=== PATIENT | female | born 1965 | race Caucasian/White ===

== ENCOUNTER → 2016-11-07 | Outpatient (CLI) | payer OTHER ==
[2016-11-07 08:00] LABS: FREE T4 1.09 ng/dL (0.76-1.46)
== END | disposition home or self-care (01) ==
LOC: LAB 04:38
PROVIDERS: ATTEND Family Medicine
DX: E03.8 Other specified hypothyroidism (principal)
CPT/HCPCS: 36415; 84439; 84443; 84479

== ENCOUNTER 2016-12-29 17:09 | Emergency (ER) | payer OTHER ==
[~2016-12-29] VITALS: Ht 172.7 cm; Wt 82.6 kg
[2016-12-29 17:15] VITALS: BP 126/81
[2016-12-29] MEDS ORDERED: PROAIR HFA8.5 GM INH (18:17)
[2016-12-29] MEDS ORDERED: PRED20TA PO (18:17)
[2016-12-29] MEDS ORDERED: AZIT250T PO (18:17)
--- NOTE | 2016-12-29 18:17 | PHYS DOC ---
Past Medical History Past Medical History: Hypothyroid Past Surgical History: Appendectomy, Hysterectomy, Tonsillectomy Additional Past Surgical Histo: THYROIDECTOMY Smoking: Less than 1pk/day Alcohol Use: None Drug Use: None Adult General Chief Complaint Chief Complaint: OTHER COMPLAINTS [facility] HPI Patient is a 51 year old female who presents with productive cough for 5 days. She states that her left lung feels "congested." She has a burning sensation in the left lung when she coughs. She also has nasal congestion and right ear pain. She denies fever, shortness breath, or sore throat. She's been taking DayQuil and NyQuil for her symptoms without relief. She is a smoker. Her PCP is Dr. Calvin. Review of Systems Review of Systems Constitutional: Denies fever or chills. [] Eyes: Denies change in visual acuity, redness, or eye pain. [] HENT: Denies sore throat. Reports nasal congestion and right ear pain. Respiratory: Denies shortness of breath. Reports productive cough. Cardiovascular: Denies palpitations or edema. [] GI: Denies abdominal pain, nausea, vomiting, bloody stools or diarrhea. [] : Denies dysuria, hematuria or urinary frequency. [] Musculoskeletal: Denies back pain or joint pain. [] Integument: Denies rash or skin lesions. [] Neurologic: Denies headache, focal weakness or sensory changes. [] Endocrine: Denies polyuria or polydipsia. [] Psych: Denies anxiety or depression. [] All systems reviewed and negative unless otherwise stated in the HPI. Allergies Allergies Allergies Coded Allergies Type Severity Reaction Last Updated Verified Sulfa (Sulfonamide Antibiotics) Allergy Unknown 12/29/16 No Physical Exam Physical Exam Constitutional: Well developed, well nourished, no acute distress, non-toxic appearance. [] HENT: Normocephalic, atraumatic, bilateral external ears normal, oropharynx moist, no oral exudates, nose normal. Bilateral TMs without erythema or bulging. There is no posterior pharyngeal erythema or tonsillar edema. Bilateral nasal turbinates are swollen and erythematous. Eyes: PERRLA, EOMI, conjunctiva normal, no discharge. [] Neck: Normal range of motion, no tenderness, supple, no stridor. [] Cardiovascular: Heart rate regular rhythm, no murmur [] Lungs & Thorax: Bilateral breath sounds clear to auscultation without wheezes, rales, or rhonchi. Skin: Warm, dry, no erythema, no rash. [] Neurologic: Alert and oriented X 3, normal motor function, normal sensory function, no focal deficits noted. [] Psychologic: Affect normal, judgement normal, mood normal. [] Current Patient Data Vital Signs Vital Signs Date Time Temp Pulse Resp B/P Pulse Ox O2 Delivery O2 Flow Rate FiO2 12/29/16 17:15 98.1 90 16 98 Room Air 98.1 EKG EKG [] Radiology/Procedures Radiology/Procedures PA and lateral chest x-ray reviewed and interpreted by myself with Dr. Wang. There are no focal infiltrates to suggest pneumonia. Course & Med Decision Making Course & Med Decision Making Pertinent Labs and Imaging studies reviewed. (See chart for details) [] Dragon Disclaimer Dragon Disclaimer This electronic medical record was generated, in whole or in part, using a voice recognition dictation system. Departure Departure Impression: Primary Impression: Bronchitis Disposition: 01 HOME, SELF-CARE Condition: STABLE Referrals: JHONY CALVIN MD (PCP) Patient Instructions: Acute Bronchitis, [id number] Additional Instructions: Please complete all the prescribed steroids and antibiotics, even if you are feeling better. Please use the prescribed inhaler as needed for cough or shortness of breath. Do not use more often than directed. Please follow-up with your primary care provider within the next week. Return to emergency department if you have any new or concerning symptoms. Scripts Azithromycin (Zithromax)250 Mg Tablet1 Pkg PO UD #6 TAB Prov:PARRIS TRENT 12/29/16 Albuterol Sulfate (Proair Hfa Inhaler)8.5 Gm Hfa.aer.ad1 Puff INH Q4HRS PRN SHORTNESS OF BREATH #1 INHALER Prov:PARRIS TRENT 12/29/16 Prednisone 20 Mg Aluxsv90 Mg PO DAILY 5 Days Prov:PARRIS TRENT 12/29/16 PARRIS TRENT Dec 29, 2016 18:17
--- NOTE | 2016-12-30 08:58 | RAD ---
Chest, 2 views, 12/29/2016: History: Left-sided chest congestion and cough The heart size and pulmonary vascularity are normal. No pulmonary infiltrate is seen. There is no evidence of pleural fluid. There is a surgical plate and screws related to the medial left clavicle. An electronic device and lead projected over this region may represent a stimulator type device. IMPRESSION: No acute cardiopulmonary abnormality is detected.
== END 2016-12-29 18:37 | disposition home or self-care (01) ==
LOC: ER 17:09
DX: J40 Bronchitis, not specified as acute or chronic (principal); E03.9 Hypothyroidism, unspecified; F17.200 Nicotine dependence, unspecified, uncomplicated; Z90.89 Acquired absence of other organs; Z88.2 Allergy status to sulfonamides
CPT/HCPCS: 71020; 99284

== ENCOUNTER 2017-01-17 00:12 | Inpatient (IN) | payer OTHER ==
[~2017-01-17] VITALS: Ht 170.2 cm; Wt 83.9 kg
[~2017-01-17 00:12] MED LIST: AZIT250T PO; PRED20TA PO; PROAIR HFA8.5 GM INH
[2017-01-17] MEDS ORDERED: IV NORMAL SALINE 1000ML BAG 1,000 ML IV SCH (00:33)
[2017-01-17] MEDS ORDERED: FENTANYL PF 100 MCG/2 ML VIAL. IV PRN (00:45)
[2017-01-17] MEDS ORDERED: CONTRAST GIVEN MC PRN (00:45)
[2017-01-17] MEDS ORDERED: 0.9 % SODIUM CHLORIDE 10 ML DISP.SYRIN. IV PRN (00:45)
--- NOTE | 2017-01-17 00:47 | PHYS DOC ---
Past Medical History Past Medical History: Hypothyroid Past Surgical History: Appendectomy, Hysterectomy, Tonsillectomy Additional Past Surgical Histo: THYROIDECTOMY Alcohol Use: None Drug Use: None Adult General Chief Complaint Chief Complaint: ABDOMINAL PAIN [facility] HPI Patient is a 52 year old female presents to the emergency Department with complaint of 2 days of lower abdominal pain that appears to now radiating upward bilaterally, left greater than right. Patient denies injury. Patient denies any history of chronic gastrointestinal disease. She has had her gallbladder, appendix, uterus, both fallopian tubes and one ovary removed in the past. She denies any history of bowel obstructions. She denies nausea, vomiting, diarrhea or constipation. She denies dysuria, hematuria or flank pain. 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 She was working tonight when the pain became so intense that she had asked to step away from her nursing duties that she could be evaluated. Review of Systems Review of Systems Constitutional: Denies fever or chills [] Eyes: Denies change in visual acuity, redness, or eye pain [] HENT: Denies nasal congestion or sore throat [] Respiratory: Denies cough or shortness of breath [] Cardiovascular: No additional information not addressed in HPI [] GI: Denies abdominal pain, nausea, vomiting, bloody stools or diarrhea [] : Denies dysuria or hematuria [] Musculoskeletal: Denies back pain or joint pain [] Integument: Denies rash or skin lesions [] Neurologic: Denies headache, focal weakness or sensory changes [] Endocrine: Denies polyuria or polydipsia [] Current Medications Current Medications Current Medications Medications (Trade) Dose Ordered Sig/[facility] Start Time Stop Time Status Last Admin Dose Admin Fentanyl Citrate 50 mcg 50 mcg PRN Q30MIN PRN 01/17/17 00:45 01/17/17 12:42 DC 01/17/17 00:42 50 MCG Info (Do NOT chart on this entry -- for MONITORING) 1 each PRN DAILY PRN 01/17/17 00:45 01/17/17 12:42 DC Iohexol (Omnipaque 300 Mg/ml) 75 ml 1X ONCE 01/17/17 01:00 01/17/17 01:01 DC 01/17/17 01:07 75 ML Morphine Sulfate 2 mg 1X ONCE 01/17/17 03:00 01/17/17 03:01 DC 01/17/17 03:09 2 MG Ondansetron HCl (Zofran) 4 mg 1X ONCE 01/17/17 01:00 01/17/17 01:01 DC 01/17/17 00:43 4 MG Sodium Chloride (Iv Sodium Chloride 0.9% 1000ml Bag) 1,000 ml @ 1,000 mls/hr Q1H 01/17/17 00:33 01/17/17 01:32 DC 01/17/17 00:43 1,000 MLS/HR Sodium Chloride (Normal Saline Flush) 10 ml QSHIFT PRN 01/17/17 00:45 01/17/17 12:42 DC Allergies Allergies Allergies Coded Allergies Type Severity Reaction Last Updated Verified Sulfa (Sulfonamide Antibiotics) Allergy Intermediate 01/17/17 No Physical Exam Physical Exam Constitutional: Well developed, well nourished, no acute distress, non-toxic appearance. [] HENT: Normocephalic, atraumatic, bilateral external ears normal, oropharynx moist, no oral exudates, nose normal. [] Eyes: PERRLA, EOMI, conjunctiva normal, no discharge. [] Neck: Normal range of motion, no tenderness, supple, no stridor. [] Cardiovascular:Heart rate regular rhythm, no murmur [] Lungs & Thorax: Bilateral breath sounds clear to auscultation [] Abdomen: Abdomen is soft and nondistended. There are hypoactive bowel sounds in all 4 quadrants. There is no palpable defect to the abdominal wall or pulsatile mass. There is tenderness to palpation to the suprapubic region extending to the left lower quadrant and upper. Skin: Warm, dry, no erythema, no rash. [] Back: No tenderness, no CVA tenderness. [] Extremities: No tenderness, no cyanosis, no clubbing, ROM intact, no edema. [] Neurologic: Alert and oriented X 3, normal motor function, normal sensory function, no focal deficits noted. [] Psychologic: Affect normal, judgement normal, mood normal. [] Current Patient Data Vital Signs Vital Signs Date Time Temp Pulse Resp B/P Pulse Ox O2 Delivery O2 Flow Rate FiO2 01/17/17 04:15 64 109/64 95 Room Air 01/17/17 00:31 97.8 18 97.8 Lab Values Laboratory Tests Test 01/17/17 00:28 White Blood Count 13.0x10^3/uL (4.0-11.0) H Red Blood Count 4.29x10^6/uL (3.50-5.40) Hemoglobin 13.8g/dL (12.0-15.5) Hematocrit 41.1% (36.0-47.0) Mean Corpuscular Volume 96fL (79-100) Mean Corpuscular Hemoglobin 32pg (25-35) Mean Corpuscular Hemoglobin Concent 34g/dL (31-37) Red Cell Distribution Width 13.4% (11.5-14.5) Platelet Count 276x10^3/uL (140-400) Neutrophils (%) (Auto) 58% (31-73) Lymphocytes (%) (Auto) 29% (24-48) Monocytes (%) (Auto) 5% (0-9) Eosinophils (%) (Auto) 7% (0-3) H Basophils (%) (Auto) 1% (0-3) Neutrophils # (Auto) 7.6x10^3uL (1.8-7.7) Lymphocytes # (Auto) 3.7x10^3/uL (1.0-4.8) Monocytes # (Auto) 0.6x10^3/uL (0.0-1.1) Eosinophils # (Auto) 0.9x10^3/uL (0.0-0.7) H Basophils # (Auto) 0.2x10^3/uL (0.0-0.2) Urine Collection Type Unknown Urine Color Yellow Urine Clarity Clear Urine pH 6.0 Urine Specific [place] <=1.005 Urine Protein Negativemg/dL (NEG-TRACE) Urine Glucose (UA) Negativemg/dL (NEG) Urine Ketones (Stick) Negativemg/dL (NEG) Urine Blood Trace (NEG) Urine Nitrite Negative (NEG) Urine Bilirubin Negative (NEG) Urine Urobilinogen Dipstick 0.2mg/dL (0.2 mg/dL) Urine Leukocyte Esterase Small (NEG) Urine RBC Occ/HPF (0-2) Urine WBC 1-4/HPF (0-4) Urine Squamous Epithelial Cells Few/LPF Urine Bacteria Few/HPF (0-FEW) Sodium Level 135mmol/L (136-145) L Potassium Level 3.5mmol/L (3.5-5.1) Chloride Level 99mmol/L (98-107) Carbon Dioxide Level 23mmol/L (21-32) Anion Gap 13 (6-14) Blood Urea Nitrogen 8mg/dL (7-20) Creatinine 0.7mg/dL (0.6-1.0) Estimated GFR (Cockcroft-Gault) 88.6 BUN/Creatinine Ratio 11 (6-20) Glucose Level 89mg/dL (70-99) Calcium Level 9.1mg/dL (8.5-10.1) Total Bilirubin 0.3mg/dL (0.2-1.0) Aspartate Amino Transferase (AST) 11U/L (15-37) L Alanine Aminotransferase (ALT) 19U/L (14-59) Alkaline Phosphatase 79U/L (46-116) Total Protein 7.2g/dL (6.4-8.2) Albumin 3.8g/dL (3.4-5.0) Albumin/Globulin Ratio 1.1 (1.0-1.7) Lipase 134U/L (73-393) Laboratory Tests 01/17/17 00:28 Laboratory Tests 01/17/17 00:28 EKG EKG [] Radiology/Procedures Radiology/Procedures PROCEDURE CT of the abdomen pelvis with contrast HISTORY Lower abdominal pain left worse than right TECHNIQUE After IV infusion of95 cc of Optiray-320, helical CT scanning of the abdomen and pelvis was performed.GI contrast was not administered FINDINGS The liveer is homogeous in appearance and normal in size. The spleen is unremarkable and normal in size. The pancreas is homogeneous in appearance and no focal enlargement is seen. The gallbladder appears normal and no intra or extrahepatic biliary ductal dilatation is seen. No focal aneurysmal dilatation of the abdominal aorta is seen. No enlarged abdominal or pelvic lymphadenopathy is seen. No soft tissue mass is seen. No obstructive bowel pattern or bowel wall thickening or inflammatory change is seen. No free intraperitoneal fluid or abscess or free intraperitoneal air is seen. The lung bases are clear. Both kidneys are functioning and no hydronephrosis or renal mass or perinephric fluid collection is seen. The urinary bladder wall is smooth. No adrenal masses are seen. [The appendix is not well seen. IMPRESSION No significant CT abnormality of the abdomen or the pelvis is seen. PROCEDURE Ultrasound pelvis complete. HISTORY Diffuse abdominal and pelvic pain TECHNIQUE Sonographic examination of pelvis was performed by transabdominal technique multiple static images were obtained. FINDINGS The uterus and ovaries are not seen. There is prominent fluid and gas-filled bowel. IMPRESSION Fluid-filled loops of bowel is nonspecific and likely a mild ileus. Electronically signed by: Stephen Panchal MD (Jan 17, 2017 04:18:22) Course & Med Decision Making Course & Med Decision Making 0130: Patient is hemodynamically stable. She has a slightly elevated white blood cell count 13,000, her urine shows no evidence of urinary tract infection. Awaiting CT scan of her abdomen and pelvis. This was staffed with Dr. Sabillon who assumes care of the patient at this time. Assumed care of this patient from the advanced provider, Kenisha Ibarra. At this time the patient has laboratory workup is unremarkable. CT of her abdomen and pelvis and ultrasound reveals no acute findings but a probable ileus. Patient was observed in the department for multiple hours and ultimately it was decided that she should be admitted for ongoing abdominal pain. I discussed the need to admit the patient with the hospitalist, Dr. Montero, who agreed to accept the patient for further evaluation treatment and continued IV fluids and pain control. Dragon Disclaimer Dragon Disclaimer This electronic medical record was generated, in whole or in part, using a voice recognition dictation system. Departure Departure Impression: Primary Impression: Abdominal pain Additional Impression: Ileus Disposition: ADMITTED INPATIENT Admitting Physician: Abigail Montero Condition: STABLE Referrals: JHONY ARCHER MD (PCP) Scripts Polyethylene Glycol 3350 (Miralax)17 Gm Powd.pack1 Pkt PO DAILY #30 PKT Prov:ABIGAIL MONTERO MD 01/17/17 Ciprofloxacin Hcl (Cipro)250 Mg Tablet1 Tab PO BID #14 TAB Prov:ABIGAIL MONTERO MD 01/17/17 Problem Qualifiers RYLIE IBARRA Jan 17, 2017 00:47 KENISHA SABILLON DO Jan 17, 2017 04:36
[2017-01-17 00:49] LABS: BASO # 0.2 x10^3/uL (0.0-0.2); BASO % 1 % (0-3); EOS % 7 % (0-3); HEMATOCRIT 41.1 % (36.0-47.0); HEMOGLOBIN 13.8 g/dL (12.0-15.5); LYMPH # 3.7 x10^3/uL (1.0-4.8); LYMPH % 29 % (24-48); MEAN CORPUSCULAR HEMOGLOBIN 32 pg (25-35); MEAN CORPUSCULAR HGB CONC 34 g/dL (31-37); MEAN CORPUSCULAR VOLUME 96 fL (79-100); MONO % 5 % (0-9); NEUT % 58 % (31-73); PLATELET COUNT 276 x10^3/uL (140-400); RED BLOOD COUNT 4.29 x10^6/uL (3.50-5.40); RED CELL DISTRIBUTION WIDTH 13.4 % (11.5-14.5)
[2017-01-17 00:56] LABS: CALCIUM 9.1 mg/dL (8.5-10.1); CREATININE 0.7 mg/dL (0.6-1.0); GFR 88.6; POTASSIUM 3.5 mmol/L (3.5-5.1)
[2017-01-17 00:59] LABS: BILIRUBIN,URINE NEGATIVE (NEG); GLUCOSE,URINE NEGATIVE (NEG); NITRITE,URINE NEGATIVE (NEG); PROTEIN,URINE NEGATIVE (NEG-TRACE); UROBILINOGEN,URINE 0.2 mg/dL (0.2 mg/dL)
[2017-01-17] MEDS ORDERED: ONDANSETRON PF 4 MG/2 ML VIAL. IV ONE (01:00)
[2017-01-17] MEDS ORDERED: IOHEXOL 300 MG/ML 75 ML VIAL IV ONE (01:00)
[2017-01-17 01:02] LABS: ALBUMIN 3.8 g/dL (3.4-5.0); ALBUMIN/GLOBULIN RATIO 1.1 (1.0-1.7); TOTAL BILIRUBIN 0.3 mg/dL (0.2-1.0); TOTAL PROTEIN 7.2 g/dL (6.4-8.2)
[2017-01-17 01:17] LABS: BACTERIA,URINE FEW /HPF (0-FEW); RBC,URINE OCC /HPF (0-2); SQUAMOUS EPITHELIAL CELL,UR FEW /LPF
--- NOTE | 2017-01-17 01:45 | RAD ---
PROCEDURE CT of the abdomen pelvis with contrast HISTORY Lower abdominal pain left worse than right TECHNIQUE After IV infusion of95 cc of Optiray-320, helical CT scanning of the abdomen and pelvis was performed.GI contrast was not administered FINDINGS The liveer is homogeous in appearance and normal in size. The spleen is unremarkable and normal in size. The pancreas is homogeneous in appearance and no focal enlargement is seen. The gallbladder appears normal and no intra or extrahepatic biliary ductal dilatation is seen. No focal aneurysmal dilatation of the abdominal aorta is seen. No enlarged abdominal or pelvic lymphadenopathy is seen. No soft tissue mass is seen. No obstructive bowel pattern or bowel wall thickening or inflammatory change is seen. No free intraperitoneal fluid or abscess or free intraperitoneal air is seen. The lung bases are clear. Both kidneys are functioning and no hydronephrosis or renal mass or perinephric fluid collection is seen. The urinary bladder wall is smooth. No adrenal masses are seen. [The appendix is not well seen. IMPRESSION No significant CT abnormality of the abdomen or the pelvis is seen. Electronically signed by: Stephen Panchal MD (Jan 17, 2017 01:44:21)
[2017-01-17] MEDS ORDERED: MORPHINE SULFATE 2 MG/ML DISP.SYRIN. IV ONE (03:00)
--- NOTE | 2017-01-17 04:19 | RAD ---
PROCEDURE Ultrasound pelvis complete. HISTORY Diffuse abdominal and pelvic pain TECHNIQUE Sonographic examination of pelvis was performed by transabdominal technique multiple static images were obtained. FINDINGS The uterus and ovaries are not seen. There is prominent fluid and gas-filled bowel. IMPRESSION Fluid-filled loops of bowel is nonspecific and likely a mild ileus. Electronically signed by: Stephen Panchal MD (Jan 17, 2017 04:18:22)
[2017-01-17] MEDS ORDERED: ONDANSETRON PF 4 MG/2 ML VIAL. IV PRN (04:45)
[2017-01-17] MEDS ORDERED: MORPHINE SULFATE 4 MG/ML DISP.SYRIN. IV PRN (04:45)
--- NOTE | 2017-01-17 06:28 | ACF ---
Admission Forms Criteria ABDOMINAL PAIN Clinical Indications for Admission to Inpatient Care (Place 'X' for any and all applicable criteria): Admission is indicated for ANY ONE of the following(1)(2)(3)(4)(5): [X]I. Inpatient admission required rather than observation care (Also use Abdominal Pain: Observation Care, as appropriate) because of ANY ONE of the following: [ ]a) Severe pain requiring acute inpatient management [X]b) Identification of etiology/finding that requires inpatient care (eg, aortic dissection, free air) [ ]c) Absent bowel sounds with complete ileus(6) [ ]d) Suspected toxic megacolon [ ]e) Severe electrolyte abnormalities requiring inpatient care [ ]f) High fever or infection requiring inpatient admission as indicated by ANY ONE of following(7)(8): [ ] i) Appropriate outpatient or observational care antimicrobial treatment unavailable, not effective, or not feasible [ ] ii) Documented bacteremia [ ] iii) Temperature > 104.9 degrees F (oral) [ ] iv) T >103.1 F (oral) or < 96.8 F(rectal) that does not respond to all emergency treatment measures [ ]g) Signs of intestinal obstruction [B] [ ]h) Hemodynamic instability [ ]i) IV fluid to replace significant ongoing losses (greater than 3 L/m2 per day) (12)(13) [ ]j) Percutaneous or open drainage (eg, abscess, biliary tract ) procedures [ ]k) Parenteral nutrition regimen that must be implemented on inpatient basis [ ]l) Other condition,treatment or monitoring requiring inpatient admission. [ ]II. Peritoneal signs present [ ]III. Surgery needed that cannot be performed on an ambulatory basis. [ ]IV. Evaluation requires patient to not eat or drink for extended period ( eg, more than 24 hours). [ ]V. Contraindications and/or Inappropriate clinical situations for Observational Care in patients with abdominal pain, when ANY ONE of the following is required: [ ]a) Thorough evaluation is required to prevent catastrophic events due to delays in diagnosing (e.g.Mesenteric ischemia) 1,3 [ ]b) Patient with severe pathology or with chronic symptoms unlikely to improve in the ED stay (3) [ ]. General contraindications and/or Inappropriate clinical situations for Observational Care in patients with abdominal pain, when ANY ONE of the following is required: [ ]a) Prediction of prolongation of LOS based on ANY ONE of the following may be considered as a contraindication for observational care 2, 3, 4, 5, 6, 7, 8, 9, 10, 11 [ ]i) Age > 65 yrs. [ ]ii) Patient arriving by ambulance [ ]iii) Patient with high acuity [ ]iv) Patient requiring vital sign monitoring [ ]v) Patient on IV medication [ ]b) Systolic blood pressures 180mmHg 3,12 [ ]c) Patient with altered mental status including delirium and other alteration of consciousness, (3) [ ]d) Patient whose discharge disposition will be to a senior living home or rehabilitation home should not be managed in Emergency Department Observation Unit. CMS rule requires 3 days hospital stay before such placement.3,13 [ ]e) Patient with failure to thrive due to broad array of etiologies 3,16,17 [ ]f) Inability to ambulate 3,14 Extended stay beyond goal length of stay may be needed for(2)(3): [ ]a) Persistent abdominal pain with suspected intra-abdominal process [ ]b) Diagnosed condition requiring continued stay (e.g., pancreatitis, complicated diverticulitis) [ ]c) Surgery (e.g., colectomy) The original [employer] content created by [employer] has been revised. The portions of the content which have been revised are identified through the use of italic text or in bold, and [facility] has neither reviewed nor approved the modified material.All other unmodified content is copyright [employer]. Please see references footnoted in the original [employer] [facility] edition 2016 Admission Criteria Met?: Yes MOIZ REYES Jan 17, 2017 06:28
[2017-01-17 07:45] VITALS: BP 97/62
[2017-01-17] MEDS ORDERED: LEVO175T2 PO ×2 (09:17)
[2017-01-17] MEDS ORDERED: CLON0.5T3 PO (09:17)
[2017-01-17 11:10] VITALS: BP 91/57
--- NOTE | 2017-01-17 12:00 | PDOC ---
Provider Note Provider Note See admission H&P/23 hour short stay dictation #[id number] Impression: 1. Lower abdominal pain, improved: 2. Mild ileus: 3. Abnormal UA. ABIGAIL MONTERO MD Jan 17, 2017 12:00
--- NOTE | 2017-01-17 12:02 | DISCH ---
DISCHARGE INSTRUCTIONS Condition on Discharge Condition on Discharge: Stable Activity After Discharge Activity Instructions for Disc: Activity as tolerated (off work tonight and tomorrow. ) Diet after Discharge Diet after Discharge: Regular Contacting the DR. after DC Call your doctor for: If your condition worsens Follow-Up Follow up with: Dr Calvin in one week. Urine cx results in 1-2 days ABIGAIL MONTERO MD Jan 17, 2017 12:02
[2017-01-17] MEDS ORDERED: CIPR250T30 PO (12:05)
[2017-01-17] MEDS ORDERED: POLY17PO5 PO (12:05)
--- NOTE | 2017-01-18 01:39 | HP ---
ADMIT DATE: 01/17/2017 ADMISSION HISTORY AND PHYSICAL AND 23-HOUR SHORT STAY DISCHARGE SUMMARY ATTENDING PHYSICIAN: Dr. Abigail Montero CHIEF COMPLAINT: Lower abdominal pain. 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 She started to have the onset of pain in the suprapubic area on the morning of 01/15/2017. There seemed to be a pain that would radiate into the bilateral upper anterior thighs when she would get up and walk around. She tried [id number] anti-inflammatories with some minimal relief. She has been eating and drinking without any difficulty. She denies any nausea, no change with her bowel movements, which have been normal. There is no melena. She denies any dysuria. When she was working her shift on the night of admission in the Emergency Room, she noticed that her pain had gotten significantly worse and was still located in the suprapubic area, but occasionally would radiate into the left upper abdomen. Again, there is no nausea or vomiting, no changes in her stools. She denies any back pain. PAST MEDICAL HISTORY: Significant for hypothyroidism, history of gestational diabetes, history of papillary adenocarcinoma of the thyroid, auditory nerve disease, and allergic rhinitis. PAST SURGICAL HISTORY: Tonsillectomy, appendectomy, cholecystectomy, thyroidectomy, hysterectomy with bilateral tube removal and unilateral oophorectomy, although she is uncertain which side the ovary remains on. MEDICATIONS: At the time of admission include: Albuterol metered dose inhaler 2 puffs q.i.d. p.r.n., clonazepam 0.5 mg p.o. at bedtime, and levothyroxine 175 mcg p.o. daily 6 days out of the week. ALLERGIES TO MEDICATIONS: SULFA. FAMILY HISTORY: Noncontributory. SOCIAL HISTORY: She does smoke. She denies any alcohol or illicit drug use. She lives at home with her . REVIEW OF SYSTEMS: The patient denies any fevers. She has not had any upper respiratory symptoms. She has been swallowing without any difficulty. She denies any cough or shortness of breath. She denies any chest pain or palpitations. She denies any heartburn, reflux, abdominal discomfort other than as noted in the HPI. She denies any melena. She does tend to have more problems with constipation in general. She takes probiotic regularly for that. She denies any dysuria, hematuria, or urinary frequency. She denies any back pain. She denies any lower extremity swelling. She denies any paresthesias or weakness. No mood problems. The patient did have a bowel movement before she started her shift on the evening of admission. 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 PHYSICAL EXAMINATION: VITAL SIGNS: At the time of admission, temperature 97.8, pulse 82, respiratory rate 18, blood pressure 148/84, O2 sat 98% on room air. GENERAL: The patient is well developed and nourished female in no acute distress. She is alert and oriented. HEENT: The pupils are equal and round. Extraocular motions are intact. The sclerae are anicteric. Oropharynx is moist. NECK: Without JVD or bruit. No thyromegaly. CHEST: Clear to auscultation bilaterally with okay air movement throughout. CARDIOVASCULAR: The heart has a regular rate and rhythm without murmur. ABDOMEN: Occasional bowel sounds, soft, nondistended. No guarding, no rebound tenderness. She does have minimal tenderness, more in the suprapubic area and slightly more on the left lower quadrant. BACK: Nontender to palpation. EXTREMITIES: There is no edema. MUSCULOSKELETAL: She does have some discomfort at the hip flexor attachment into the pelvis, especially on the left side. She has some discomfort with hip flexor strain, particularly on the left. NEUROLOGIC: Motor strength is intact. Sensation is intact. Neuro exam is otherwise nonfocal. PSYCHIATRIC: Mood and affect appear appropriate. LABORATORY DATA: At the time of admission; WBC 13.0, hemoglobin 13.8, hematocrit 41.1, platelets 276. UA shows specific gravity less than 0.1005, trace of blood, small leukocyte esterase, 1-4 wbc's, few epithelial cells, few bacteria. Sodium 135, potassium 3.5, chloride 99, CO2 of 23, BUN 8, creatinine 0.7, glucose 89. LFTs are within normal limits. Lipase 134. She did undergo CT of the abdomen and pelvis, which showed no significant abnormality of the abdomen or pelvis. Specifically, there are no adnexal masses seen. The kidneys appeared to be unremarkable without any abnormality. There was no obstructive bowel pattern or bowel wall thickening or inflammatory changes seen. No adenopathy. Pelvic ultrasound showed uterus and ovaries were not seen. There was prominent fluid and gas filled bowel consistent with a possible mild ileus. HOSPITAL COURSE: The patient was admitted. She was monitored. Her symptoms improved. She was passing gas. She denies any urinary symptoms. She is hungry and wants to eat and she is not having any problems with tolerating liquid diet. Her pain was improved, although she had not been moving around much. She desires to go home where she feels that she can monitor herself and I agree with that. We did discuss that she might possibly have a urinary tract infection, so she was given a prescription for Cipro 250 mg p.o. b.i.d. for 7 days if she were to start to develop urinary symptoms. She is to call tomorrow or the next day to get the urine culture results to see if she should start taking the antibiotics as possible cause for her symptoms. We also discussed the option of her starting regular MiraLax for now to improve her bowel regimen as there could definitely be a component of adhesions causing some of her problem with her multiple abdominal surgeries in the past and unremarkable findings otherwise on CT and ultrasound. DISCHARGE DIAGNOSES: 1. Lower abdominal pain, which is improved, possibly due to adhesions versus early urinary tract infection versus musculoskeletal discomfort. 2. Possible mild ileus noted on the pelvic ultrasound. 3. Abnormal urinalysis. DISCHARGE DIET: Regular diet. DISCHARGE ACTIVITY: As tolerated. She will be off for tonight and tomorrow night, but if she is improved, she can go back to work. MEDICATIONS AT THE TIME OF DISCHARGE: She is to resume her usual home medications. We discussed doing ibuprofen t.i.d. for 2-3 days as well as adding MiraLax daily into her regimen. Prescription was written for Cipro, although the patient is to hold on that unless there is indication of urinary tract infection on the UA or she starts to have more urinary tract type symptoms. FOLLOWUP: The patient is to follow up with Dr. Calvin within the next week or if she has worsening symptoms. ABIGAIL MONTERO MD DR: AGUS/orquidea JOB#: [id number] / [id number]
== END 2017-01-17 12:42 | disposition home or self-care (01) | DRG 390 ==
LOC: ER 00:12 → 5 NORTH 04:31
PROVIDERS: ADMIT Family Medicine; ATTEND Family Medicine
DX: K56.7 Ileus, unspecified (principal); F17.200 Nicotine dependence, unspecified, uncomplicated; J30.9 Allergic rhinitis, unspecified; E03.9 Hypothyroidism, unspecified; Z85.850 Personal history of malignant neoplasm of thyroid; Z86.32 Personal history of gestational diabetes; Z90.49 Acquired absence of other specified parts of digestive tract; Z90.710 Acquired absence of both cervix and uterus; Z88.2 Allergy status to sulfonamides; Z90.721 Acquired absence of ovaries, unilateral
CPT/HCPCS: 36415; 74177; 76856; 80053; 81001; 83690; 85027; 87086; 96361; 96374; 96375; J2270; J2405; J3010; J7030; Q9967; 99285-25

== ENCOUNTER → 2017-01-22 | Outpatient (CLI) | payer OTHER ==
[2017-01-17 11:10] VITALS: BP 91/57
[~2017-01-22] MED LIST changes: +CIPR250T30 PO; +CLON0.5T3 PO; +LEVO175T2 PO; +POLY17PO5 PO
[2017-01-22 10:38] LABS: BASO # 0.1 x10^3/uL (0.0-0.2); BASO % 1 % (0-3); EOS % 8 % (0-3); HEMATOCRIT 42.6 % (36.0-47.0); HEMOGLOBIN 14.5 g/dL (12.0-15.5); LYMPH % 31 % (24-48); MEAN CORPUSCULAR HEMOGLOBIN 32 pg (25-35); MEAN CORPUSCULAR HGB CONC 34 g/dL (31-37); MEAN CORPUSCULAR VOLUME 95 fL (79-100); MONO % 6 % (0-9); NEUT % 55 % (31-73); PLATELET COUNT 297 x10^3/uL (140-400); RED BLOOD COUNT 4.48 x10^6/uL (3.50-5.40); RED CELL DISTRIBUTION WIDTH 13.6 % (11.5-14.5); WHITE BLOOD COUNT 9.7 x10^3/uL (4.0-11.0)
--- NOTE | 2017-01-22 11:01 | RAD ---
Abdomen radiographs History: Ileus. Comparison: CT abdomen pelvis 01/17/2017. Findings: Supine and upright views of the abdomen. No dilated loops of bowel are seen. Cholecystectomy clips are present. No convincing calcification is seen over either renal shadow, although both are partially obscured by bowel gas and stool. Impression: No acute abnormality identified in the chest or abdomen.
== END | disposition home or self-care (01) ==
LOC: LAB 10:11
PROVIDERS: ATTEND Family Medicine
DX: K56.7 Ileus, unspecified (principal); E03.8 Other specified hypothyroidism
CPT/HCPCS: 36415; 74020; 84443; 85027

== ENCOUNTER → 2017-03-17 | Outpatient (CLI) | payer OTHER ==
[~2017-03-17] MED LIST changes: +POLY17PO29 PO; -POLY17PO5 PO
--- NOTE | 2017-03-17 10:58 | RAD ---
EXAM: DIGITAL DIAGNOSTIC BILATERAL. HISTORY: Left breast pain. The patient denies palpable lump. COMPARISON: Outside mammogram 02/12/2016. FINDINGS: Digital mammography was performed. Computer-aided detection (CAD) was utilized. Routine CC and MLO views of both breasts were obtained as well as a spot compression view of the right breast the MLO projection. The breast parenchyma demonstrates scattered fibroglandular densities (tissue density B). No dominant suspicious mass, suspicious microcalcifications, or architectural distortion is identified. IMPRESSION: No mammographic evidence of malignancy. No cause for patient's breast pain is identified. BI-RADS CATEGORY: 1 NEGATIVE RECOMMENDED FOLLOW-UP: 12M 12 MONTH FOLLOW-UP PQRS compliance statement: Patient information was entered into a reminder system with a target due date for the next mammogram. Mammography is a sensitive method for finding small breast cancers, but it does not detect them all and is not a substitute for careful clinical examination. A negative mammogram does not negate a clinically suspicious finding and should not result in delay in biopsying a clinically suspicious abnormality. "Our facility is accredited by the [employer] Mammography Program."
== END | disposition home or self-care (01) ==
LOC: MAMMO 09:16
PROVIDERS: ATTEND Family Medicine
DX: R92.8 Other abnormal and inconclusive findings on diagnostic imaging of breast (principal); N63 Unspecified lump in breast
CPT/HCPCS: G0204; 77066

== ENCOUNTER → 2017-04-30 | Outpatient (CLI) | payer OTHER ==
[2017-04-30 10:37] LABS: FREE T4 1.58 ng/dL (0.76-1.46)
== END | disposition home or self-care (01) ==
LOC: LAB 09:36
PROVIDERS: ATTEND Family Medicine
DX: E03.8 Other specified hypothyroidism (principal)
CPT/HCPCS: 36415; 84439; 84443; 84480; 84481

== ENCOUNTER 2017-06-23 00:44 | Emergency (ER) | payer OTHER ==
[~2017-06-23] VITALS: Ht 172.7 cm; Wt 79.4 kg
[2017-06-23 01:03] VITALS: BP 147/83
[2017-06-23] MEDS ORDERED: LIDOCAINE 1% / SOD BICARB 8.4% 20 ML VIAL. IJ ONE (01:30)
[2017-06-23] MEDS ORDERED: BUPIVACAINE 0.5% 50 ML VIAL. IJ ONE (01:30)
[2017-06-23] MEDS ORDERED: HYDR-971 PO (01:54)
--- NOTE | 2017-06-23 01:54 | PHYS DOC ---
Past Medical History Past Medical History: Hypothyroid Past Surgical History: Appendectomy, Hysterectomy, Tonsillectomy Additional Past Surgical Histo: THYROIDECTOMY Alcohol Use: None Drug Use: None Adult General Chief Complaint Chief Complaint: DENTAL PROBLEM HPI HPI Patient is a 52 year old female who presents with complaint of dental pain. Patient states that her symptoms started earlier this evening. The patient states that she is having severe pain to the left side of her mouth in her maxillary teeth. Patient states that she has been drinking water to try to help soothe her symptoms. Patient states that the pain comes back within seconds when her teeth are not in contact with water. Patient denies any associated swelling or fever with her symptoms. The patient has an appointment with her dentist tomorrow to be seen. Patient states that she had dental work completed earlier in the day to place a bridge on the right side of her mouth. Patient denies any pain associated with her dental work. Review of Systems Review of Systems Constitutional: Denies fever or chills [] Eyes: Denies change in visual acuity, redness, or eye pain [] HENT: Dental pain, denies nasal congestion or sore throat[] Musculoskeletal: Denies back pain or joint pain [] Integument: Denies rash or skin lesions [] Neurologic: Denies headache, focal weakness or sensory changes [] Current Medications Current Medications Current Medications Medications (Trade) Dose Ordered Sig/Raina Start Time Stop Time Status Last Admin Dose Admin Acetaminophen/ Hydrocodone Bitart (Lortab 5/325) 1 tab 1X ONCE 06/23/17 02:30 06/23/17 02:31 DC 06/23/17 01:57 1 TAB Bupivacaine HCl (Marcaine 0.5%) 50 ml 1X ONCE 06/23/17 01:30 06/23/17 01:31 DC 06/23/17 01:31 50 ML Lidocaine/Sodium Bicarbonate (Buffered Lidocaine 1%) 20 ml 1X ONCE 06/23/17 01:30 06/23/17 01:31 DC 06/23/17 01:30 20 ML Allergies Allergies Allergies Coded Allergies Type Severity Reaction Last Updated Verified Sulfa (Sulfonamide Antibiotics) Allergy Intermediate 06/16/17 No Physical Exam Physical Exam Constitutional: Alert, afebrile, appears in moderate to severe discomfort. [] HENT: Normocephalic, atraumatic, bilateral external ears normal, oropharynx moist, mild tenderness to palpation at tooth #12 and #13, no gingival fluctuance or erythema noted, no oral exudates, nose normal. [] Eyes: PERRLA, EOMI, conjunctiva normal, no discharge. [] Extremities: No tenderness, no cyanosis, no clubbing, ROM intact, no edema. [] Neurologic: Alert and oriented X 3, normal motor function, normal sensory function, no focal deficits noted. [] Current Patient Data Vital Signs Vital Signs Date Time Temp Pulse Resp B/P (MAP) Pulse Ox O2 Delivery O2 Flow Rate FiO2 06/23/17 01:03 97.1 76 16 97 Room Air 97.1 EKG EKG Not performed[] Radiology/Procedures Radiology/Procedures Not performed[] Course & Med Decision Making Course & Med Decision Making Pertinent Labs and Imaging studies reviewed. (See chart for details) The patient consented to dental nerve block for her pain. The patient had a total of 10 mL of a one-to-one mixture of bupivacaine 0.5% and lidocaine 1%. Injections were made to the left buccal nerve and left infraorbital nerve. Additional injection was made along the periosteum of the first and second left premolars. The patient states that her pain has improved at this time after injection. The patient was also treated with hydrocodone. The patient will follow-up with her dentist in the morning. Advised return emergency department for any worsening symptoms. Patient voiced understanding and in agreement with treatment plan. Patient rates her pain as 10 out of 10. Dragon Disclaimer Dragon Disclaimer This electronic medical record was generated, in whole or in part, using a voice recognition dictation system. Departure Departure Impression: Primary Impression: Pain, dental Disposition: HOME, SELF-CARE Condition: IMPROVED Referrals: JHONY ARCHER MD (PCP) Patient Instructions: Dental Pain Additional Instructions: Follow-up with your dentist tomorrow for reevaluation. Return to the emergency department for any worsening symptoms. Scripts Hydrocodone/Apap 5-325 (NORCO 5-325 TABLET) 1 Each Tablet 1-2 TAB PO Q4-6HRS Y for PAIN, #15 TAB Prov: RICH CARL MD 06/23/17 RICH CARL MD Jun 23, 2017 01:54
[2017-06-23] MEDS ORDERED: HYDROcodone/APAP 5/325MG 1 TAB TABLET PO ONE (02:30)
== END 2017-06-23 02:30 | disposition home or self-care (01) ==
LOC: ER 00:44
DX: K08.89 Other specified disorders of teeth and supporting structures (principal); E89.0 Postprocedural hypothyroidism; Z88.2 Allergy status to sulfonamides; Z90.49 Acquired absence of other specified parts of digestive tract; Z90.710 Acquired absence of both cervix and uterus
CPT/HCPCS: 64400; 99284; J3490

== ENCOUNTER → 2017-09-14 | Outpatient (CLI) | payer OTHER ==
[~2017-09-14] MED LIST changes: +HYDR-971 PO
[2017-09-14 10:10] LABS: CALCIUM 9.4 mg/dL (8.5-10.1); CHOLESTEROL/HDL RATIO 4.6; CREATININE 0.7 mg/dL (0.6-1.0); GFR 88.6; POTASSIUM 3.9 mmol/L (3.5-5.1)
[2017-09-14 17:14] LABS: HEP B SURFACE ABDY Reactive (.)
== END | disposition home or self-care (01) ==
LOC: LAB 09:02
PROVIDERS: ATTEND Internal Medicine
DX: Z13.1 Encounter for screening for diabetes mellitus (principal); Z13.220 Encounter for screening for lipoid disorders; E89.0 Postprocedural hypothyroidism
CPT/HCPCS: 36415; 80048; 80061; 83036; 84443; 86706; 86735; 86762; 86765; 86787

== ENCOUNTER 2017-10-11 11:58 | Emergency (ER) | payer OTHER ==
[2017-10-11 12:23] LABS: ADD MAN DIFF? NO
[2017-10-11 12:29] LABS: BASO # 0.1 x10^3/uL (0.0-0.2); BASO % 1 % (0-3); EOS % 1 % (0-3); HEMATOCRIT 41.7 % (36.0-47.0); HEMOGLOBIN 14.3 g/dL (12.0-15.5); LYMPH # 2.1 x10^3/uL (1.0-4.8); LYMPH % 22 % (24-48); MEAN CORPUSCULAR HEMOGLOBIN 33 pg (25-35); MEAN CORPUSCULAR HGB CONC 34 g/dL (31-37); MEAN CORPUSCULAR VOLUME 95 fL (79-100); MONO % 5 % (0-9); NEUT % 70 % (31-73); PLATELET COUNT 353 x10^3/uL (140-400); RED BLOOD COUNT 4.39 x10^6/uL (3.50-5.40); RED CELL DISTRIBUTION WIDTH 13.7 % (11.5-14.5); WHITE BLOOD COUNT 9.6 x10^3/uL (4.0-11.0)
[2017-10-11] MEDS: ONDANSETRON PF 4 MG/2 ML VIAL. IV (12:31)
[2017-10-11] MEDS: KETOROLAC 30 MG/ML INJ. IV (12:34)
[2017-10-11 12:46] LABS: ANION GAP 12 (6-14); BLOOD UREA NITROGEN 6 mg/dL (7-20); BUN/CREATININE RATIO 9 (6-20); CARBON DIOXIDE 24 mmol/L (21-32); CHLORIDE 99 mmol/L (98-107); CREATININE 0.7 mg/dL (0.6-1.0); GFR 88.6; GLUCOSE 109 mg/dL (70-99); POTASSIUM 3.5 mmol/L (3.5-5.1); SODIUM 135 mmol/L (136-145)
[2017-10-11 12:50] LABS: TROPONINI < 0.017 ng/mL (0.000-0.055)
[2017-10-11 12:54] LABS: NT-PRO BNP 79 pg/mL (0-124)
[2017-10-11 12:54] LABS: CKMB INDEX 0.6 % (0-4); CKMB MASS 0.7 ng/mL (0.0-3.6); CREATINE KINASE 116 U/L (26-192)
[2017-10-11 12:55] LABS: ALBUMIN/GLOBULIN RATIO 1.3 (1.0-1.7); ALK PHOS 98 U/L (46-116); ALT (SGPT) 23 U/L (14-59); AST (SGOT) 16 U/L (15-37); MAGNESIUM 1.7 mg/dL (1.8-2.4); TOTAL BILIRUBIN 0.5 mg/dL (0.2-1.0)
== END 2017-10-11 14:11 | disposition home or self-care (01) ==
LOC: ER 11:58
DX: R07.89 Other chest pain (principal); E05.90 Thyrotoxicosis, unspecified without thyrotoxic crisis or storm; R00.0 Tachycardia, unspecified; R42 Dizziness and giddiness; R20.0 Anesthesia of skin; R11.0 Nausea; E89.0 Postprocedural hypothyroidism; Z90.49 Acquired absence of other specified parts of digestive tract; Z90.710 Acquired absence of both cervix and uterus; Z90.721 Acquired absence of ovaries, unilateral; Z88.2 Allergy status to sulfonamides
CPT/HCPCS: 36415; 71010; 80053; 82553; 83735; 83880; 84443; 84484; 85025; 85379; 93005; 96374; 96375; 99285-25; J1885; J2405

== ENCOUNTER → 2017-11-03 | Outpatient (CLI) | payer OTHER | END | disposition home or self-care (01) | LOC: LAB 12:03 | DX: Z11.1 Encounter for screening for respiratory tuberculosis (principal) | CPT/HCPCS: 36415 ==

== ENCOUNTER 2017-11-05 08:58 | Emergency (ER) | payer OTHER ==
[2017-11-05 10:10] LABS: BILIRUBIN,URINE NEGATIVE (NEG); CLARITY,URINE CLEAR; COLOR,URINE YELLOW; GLUCOSE,URINE NEGATIVE (NEG); NITRITE,URINE NEGATIVE (NEG); PH,URINE 5.5; PROTEIN,URINE NEGATIVE (NEG-TRACE); UROBILINOGEN,URINE 0.2 mg/dL (0.2 mg/dL)
[2017-11-05 10:21] LABS: BACTERIA,URINE MOD /HPF (0-FEW); HYALINE CASTS, URINE MODERATE /HPF; SQUAMOUS EPITHELIAL CELL,UR MOD /LPF
[2017-11-05 10:26] LABS: INFLUENZA A PATIENT NEGATIVE (NEGATIVE); INFLUENZA B PATIENT NEGATIVE (NEGATIVE); OBC FLU VALID
== END 2017-11-05 11:02 | disposition home or self-care (01) ==
LOC: ER 08:58
DX: J20.9 Acute bronchitis, unspecified (principal); E03.9 Hypothyroidism, unspecified; Z88.2 Allergy status to sulfonamides
CPT/HCPCS: 71046; 81001; 87804; 87804-59; 99285-25

== ENCOUNTER → 2017-11-22 | Outpatient (CLI) | payer OTHER, BC ==
[2017-11-25 07:55] LABS: T-SPOT TB TEST(OXFORD) SEE SEPARATE REPORT
== END | disposition home or self-care (01) ==
LOC: LAB 11:08
DX: Z11.1 Encounter for screening for respiratory tuberculosis (principal)
CPT/HCPCS: 36415; 86481

== ENCOUNTER → 2017-12-13 | Outpatient (CLI) | payer OTHER ==
[2017-12-13 12:50] LABS: THYROID STIM HORMONE (TSH) 0.218 uIU/mL (0.358-3.74)
== END | disposition home or self-care (01) ==
LOC: LAB 11:03
DX: E89.0 Postprocedural hypothyroidism (principal)
CPT/HCPCS: 36415; 84443

== ENCOUNTER → 2018-03-01 | Outpatient (CLI) | payer OTHER ==
[2018-03-01 11:48] LABS: THYROID STIM HORMONE (TSH) 5.843 uIU/mL (0.358-3.74)
== END | disposition home or self-care (01) ==
LOC: LAB 11:00
DX: E89.0 Postprocedural hypothyroidism (principal)
CPT/HCPCS: 36415; 84443

== ENCOUNTER → 2018-03-16 | Outpatient (CLI) | payer OTHER | END | disposition home or self-care (01) | LOC: MAMMO 09:00 | DX: Z12.31 Encounter for screening mammogram for malignant neoplasm of breast (principal) | CPT/HCPCS: 77063; 77067 ==

== ENCOUNTER → 2018-04-18 | Outpatient (CLI) | payer OTHER ==
[2018-04-18 23:33] LABS: THYROID STIM HORMONE (TSH) 2.986 uIU/mL (0.358-3.74)
== END | disposition home or self-care (01) ==
LOC: LAB 13:49
DX: E89.0 Postprocedural hypothyroidism (principal)
CPT/HCPCS: 36415; 84443

== ENCOUNTER → 2018-07-29 | Outpatient (CLI) | payer OTHER ==
[2017-12-19 14:55] VITALS: BP 118/81
[~2018-07-29] MED LIST changes: +AMOX1TAB61 PO; +CLON0.5T11 PO; -CLON0.5T3 PO; +LEVO125T5 PO; +PANT20TA2 PO; +SUCR1TAB35 PO
[2018-07-29 12:18] LABS: BASO # 0.1 x10^3/uL (0.0-0.2); BASO % 1 % (0-3); EOS # 0.2 x10^3/uL (0.0-0.7); EOS % 1 % (0-3); HEMATOCRIT 43.7 % (36.0-47.0); LYMPH # 2.6 x10^3/uL (1.0-4.8); LYMPH % 23 % (24-48); MEAN CORPUSCULAR HEMOGLOBIN 33 pg (25-35); MEAN CORPUSCULAR HGB CONC 34 g/dL (31-37); MEAN CORPUSCULAR VOLUME 96 fL (79-100); MONO # 0.4 x10^3/uL (0.0-1.1); MONO % 4 % (0-9); NEUT # 8.3 x10^3uL (1.8-7.7); NEUT % 71 % (31-73); PLATELET COUNT 369 x10^3/uL (140-400); RED BLOOD COUNT 4.55 x10^6/uL (3.50-5.40); RED CELL DISTRIBUTION WIDTH 13.2 % (11.5-14.5); WHITE BLOOD COUNT 11.6 x10^3/uL (4.0-11.0)
[2018-07-29 12:38] LABS: ALBUMIN 4.1 g/dL (3.4-5.0); ALBUMIN/GLOBULIN RATIO 1.1 (1.0-1.7); CALCIUM 9.5 mg/dL (8.5-10.1); CREATININE 0.7 mg/dL (0.6-1.0); GFR 88.2; TOTAL BILIRUBIN 0.4 mg/dL (0.2-1.0); TOTAL PROTEIN 7.9 g/dL (6.4-8.2)
[2018-07-29 12:39] LABS: CHOLESTEROL/HDL RATIO 3.8
[2018-07-29 23:14] LABS: HEMOGLOBIN A1C 5.4 % (4.8-5.6)
== END | disposition home or self-care (01) ==
LOC: LAB 11:37
PROVIDERS: ATTEND Internal Medicine
DX: R00.2 Palpitations (principal); R61 Generalized hyperhidrosis; E03.9 Hypothyroidism, unspecified; F32.9 Major depressive disorder, single episode, unspecified; F41.9 Anxiety disorder, unspecified; F17.200 Nicotine dependence, unspecified, uncomplicated; Z90.49 Acquired absence of other specified parts of digestive tract; Z90.710 Acquired absence of both cervix and uterus; Z90.721 Acquired absence of ovaries, unilateral; Z85.850 Personal history of malignant neoplasm of thyroid; Z79.899 Other long term (current) drug therapy
CPT/HCPCS: 36415; 80053; 80061; 83036; 84443; 85025

== ENCOUNTER → 2018-10-17 | Outpatient (CLI) | payer OTHER ==
[2017-12-19 14:55] VITALS: BP 118/81
[~2018-10-17] MED LIST changes: +ALBU2.5V8 INH; +HYDR-3164 PO; -HYDR-971 PO; -PROAIR HFA8.5 GM INH
== END | disposition home or self-care (01) ==
LOC: LAB 09:43
PROVIDERS: ATTEND Internal Medicine
DX: E89.0 Postprocedural hypothyroidism (principal)
CPT/HCPCS: 36415; 84443

== ENCOUNTER 2018-10-24 14:36 | Emergency (ER) | payer OTHER ==
[~2018-10-24] VITALS: Ht 172.7 cm; Wt 68.0 kg
[2018-10-24 15:03] VITALS: BP 151/79
--- NOTE | 2018-10-24 15:38 | RAD ---
Examination: 2 views left clavicle HISTORY: History of left clavicle pain COMPARISON: Chest radiograph from 11/05/2017 Findings/ impression: Plate and screw fixation of the left clavicle appears unchanged in location compared to the prior exam. Clinical correlation is suggested. Left-sided stimulator is unchanged. Electronically signed by: Martín Alegria MD (10/24/2018 3:34 PM) [id number]
--- NOTE | 2018-10-24 15:40 | PHYS DOC ---
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 She denies chest pain or palpitations. She denies shortness of air, fever, swelling, or fever. Patient's had previous history of left clavicle surgery with metal plate and screws. Patient states she had previous stimulator at site and battery pack is still internally placed. His any recent injury or falls. Patient denies any recent travel. 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 Review of Systems Review of Systems Constitutional: Denies fever or chills [] Eyes: Denies change in visual acuity, redness, or eye pain [] HENT: Denies nasal congestion or sore throat [] Respiratory: Denies cough or shortness of breath [] Cardiovascular: No additional information not addressed in HPI [] GI: Denies abdominal pain, nausea, vomiting, bloody stools or diarrhea [] : Denies dysuria or hematuria [] Musculoskeletal: Denies back pain or joint pain [] Integument: Denies rash or skin lesions [] Neurologic: Denies headache, focal weakness or sensory changes [] Endocrine: Denies polyuria or polydipsia [] All other systems were reviewed and found to be within normal limits, except as documented in this note. Allergies Allergies Allergies Coded Allergies Type Severity Reaction Last Updated Verified Sulfa (Sulfonamide Antibiotics) Allergy Intermediate 12/17/17 No venlafaxine Allergy Intermediate 12/17/17 Yes Physical Exam Physical Exam Constitutional: Well developed, well nourished, no acute distress, non-toxic appearance. [] HENT: Normocephalic, atraumatic, bilateral external ears normal, oropharynx moist, no oral exudates, nose normal. [] Eyes: PERRLA, EOMI, conjunctiva normal, no discharge. [] Neck: Normal range of motion, no tenderness, supple, no stridor. [] Cardiovascular:Heart rate regular rhythm, no murmur [] Lungs & Thorax: Bilateral breath sounds clear to auscultation [] Abdomen: Bowel sounds normal, soft, no tenderness, no masses, no pulsatile masses. [] Skin: Warm, dry, no erythema, no rash. [] Back: No tenderness, no CVA tenderness. [] Extremities: No tenderness, no cyanosis, no clubbing, ROM intact, no edema. [] Neurologic: Alert and oriented X 3, normal motor function, normal sensory function, no focal deficits noted. [] Psychologic: Affect normal, judgement normal, mood normal. [] Current Patient Data Vital Signs Vital Signs Date Time Temp Pulse Resp B/P (MAP) Pulse Ox O2 Delivery O2 Flow Rate FiO2 10/24/18 15:03 98.3 97 16 151/79 (103) 99 Room Air 98.3 EKG EKG [] Radiology/Procedures Radiology/Procedures [] Course & Med Decision Making Course & Med Decision Making Pertinent Labs and Imaging studies reviewed. (See chart for details) [] Dragon Disclaimer Dragon Disclaimer This electronic medical record was generated, in whole or in part, using a voice recognition dictation system. Departure Departure Impression: Primary Impression: Pain of left clavicle Additional Impression: Arm paresthesia, left Referrals: NICO NIXON MD (PCP) Patient Instructions: Arm Sling Use, [id number], Musculoskeletal Pain Additional Instructions: Wear sling for arm support. Tylenol and/or ibuprofen as directed on container for pain as needed. Follow-up with Dr. Rodriguez in next 3-5 days sooner if symptoms worsen. . Problem Qualifiers DILAN MERIDA APRN Oct 24, 2018 15:40
== END 2018-10-24 15:51 | disposition home or self-care (01) ==
LOC: ER 14:36
DX: M25.512 Pain in left shoulder (principal); R20.2 Paresthesia of skin; E03.9 Hypothyroidism, unspecified; Z88.2 Allergy status to sulfonamides; Z88.8 Allergy status to other drugs, medicaments and biological substances
CPT/HCPCS: 73000; 99283

== ENCOUNTER → 2018-12-26 | Outpatient (CLI) | payer OTHER | END | disposition home or self-care (01) | LOC: LAB 13:09 | PROVIDERS: ATTEND Internal Medicine | DX: E03.9 Hypothyroidism, unspecified (principal) | CPT/HCPCS: 36415; 84443 ==

== ENCOUNTER → 2019-01-02 | Outpatient (CLI) | payer OTHER | END | disposition home or self-care (01) | LOC: LAB 10:51 | PROVIDERS: ATTEND Internal Medicine | DX: Z11.1 Encounter for screening for respiratory tuberculosis (principal) | CPT/HCPCS: 36415; 86481 ==

== ENCOUNTER 2019-02-03 21:56 | Emergency (ER) | payer OTHER ==
[~2019-02-03] VITALS: Ht 172.7 cm; Wt 83.9 kg
[2019-02-03] MEDS ORDERED: IV NORMAL SALINE 1000ML BAG 1,000 ML IV ONE (23:30)
--- NOTE | 2019-02-03 23:43 | PHYS DOC ---
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 Patient states that a few weeks ago she had some lip numbness and tingling on the left side of her face. This sensation and movement from her lips to her left cheek. Now the numbness and tingling in his on the right side of her face above her right eye. Over the course of his 3 weeks patient denies any vision changes, unilateral weakness, focal neurological deficits. She denies any pain. Nothing has improved her numbness and tingling. Nothing major numbness and tingling worse. Review of Systems Review of Systems Constitutional: Denies fever or chills Eyes: Denies change in visual acuity or eye pain HENT: Denies nasal congestion or sore throat Respiratory: Denies cough or shortness of breath Cardiovascular: Reports palpitations. Denies chest pain. GI: Denies abdominal pain, nausea, vomiting. : Denies dysuria or hematuria Musculoskeletal: Denies back pain or joint pain Integument: Denies rash or skin lesions Neurologic: Reports sensory numbness and tingling to right side of face. Denies headache or focal weakness Complete systems were reviewed and found to be within normal limits, except as documented in this note. Current Medications Current Medications Current Medications Medications (Trade) Dose Ordered Sig/Raina Start Time Stop Time Status Last Admin Dose Admin Aspirin (Abhi Aspirin) 325 mg 1X ONCE 02/04/19 01:45 02/04/19 01:46 DC 02/04/19 01:46 325 MG Info (CONTRAST GIVEN -- Rx MONITORING) 1 each PRN DAILY PRN 02/04/19 01:45 02/06/19 01:44 Iohexol (Omnipaque 350 Mg/ml) 100 ml 1X ONCE 02/04/19 01:45 02/04/19 01:46 DC 02/04/19 02:16 100 ML Potassium Chloride (Klor-Con) 40 meq 1X ONCE 02/04/19 00:45 02/04/19 00:46 DC 02/04/19 01:46 40 MEQ Sodium Chloride 1,000 ml @ 1,000 mls/hr 1X ONCE 02/03/19 23:30 02/04/19 00:29 DC 02/03/19 23:47 1,000 MLS/HR Allergies Allergies Allergies Coded Allergies Type Severity Reaction Last Updated Verified Sulfa (Sulfonamide Antibiotics) Allergy Intermediate 12/17/17 No venlafaxine Allergy Intermediate 12/17/17 Yes Physical Exam Physical Exam Constitutional: Well developed, well nourished. HENT: Normocephalic, atraumatic. Eyes: EOMI, conjunctiva normal. Neck: Normal range of motion, supple. Cardiovascular:Heart rate regular rhythm, no murmur Lungs & Thorax: Bilateral breath sounds clear to auscultation, no rhonchi rales or wheezes Abdomen: Bowel sounds normal, soft, no tenderness, no masses Skin: Warm, dry, no erythema Back: No tenderness, no CVA tenderness. Extremities: No tenderness, no cyanosis Neurologic: Alert and oriented X 3, normal motor function, normal sensory function, no focal deficits noted, cranial nerves II through XII grossly intact bilaterally, NIH score of 0. Psychologic: Affect normal, mood normal. [] Current Patient Data Vital Signs Vital Signs Date Time Temp Pulse Resp B/P (MAP) Pulse Ox O2 Delivery O2 Flow Rate FiO2 02/03/19 22:47 97.8 75 18 130/80 (97) 98 Room Air 97.8 Lab Values Laboratory Tests Test 02/03/19 23:00 02/03/19 23:15 02/03/19 23:45 Urine Collection Type Unknown Urine Color Yellow Urine Clarity Clear Urine pH 5.5 Urine Specific [place] <=1.005 Urine Protein Negative mg/dL (NEG-TRACE) Urine Glucose (UA) Negative mg/dL (NEG) Urine Ketones (Stick) Negative mg/dL (NEG) Urine Blood Negative (NEG) Urine Nitrite Negative (NEG) Urine Bilirubin Negative (NEG) Urine Urobilinogen Dipstick 0.2 mg/dL (0.2 mg/dL) Urine Leukocyte Esterase Negative (NEG) Urine RBC 0 /HPF (0-2) Urine WBC 0 /HPF (0-4) Urine Squamous Epithelial Cells Occ /LPF Urine Bacteria 0 /HPF (0-FEW) Urine Mucus Slight /LPF White Blood Count 8.5 x10^3/uL (4.0-11.0) Red Blood Count 4.14 x10^6/uL (3.50-5.40) Hemoglobin 13.2 g/dL (12.0-15.5) Hematocrit 38.9 % (36.0-47.0) Mean Corpuscular Volume 94 fL (79-100) Mean Corpuscular Hemoglobin 32 pg (25-35) Mean Corpuscular Hemoglobin Concent 34 g/dL (31-37) Red Cell Distribution Width 13.8 % (11.5-14.5) Platelet Count 291 x10^3/uL (140-400) Neutrophils (%) (Auto) 62 % (31-73) Lymphocytes (%) (Auto) 29 % (24-48) Monocytes (%) (Auto) 6 % (0-9) Eosinophils (%) (Auto) 2 % (0-3) Basophils (%) (Auto) 1 % (0-3) Neutrophils # (Auto) 5.2 x10^3uL (1.8-7.7) Lymphocytes # (Auto) 2.5 x10^3/uL (1.0-4.8) Monocytes # (Auto) 0.5 x10^3/uL (0.0-1.1) Eosinophils # (Auto) 0.2 x10^3/uL (0.0-0.7) Basophils # (Auto) 0.1 x10^3/uL (0.0-0.2) Prothrombin Time 11.9 SEC (11.7-14.0) Prothrombin Time INR 0.9 (0.8-1.1) PTT 31 SEC (24-38) Sodium Level 133 mmol/L (136-145) L Potassium Level 3.4 mmol/L (3.5-5.1) L Chloride Level 96 mmol/L (98-107) L Carbon Dioxide Level 25 mmol/L (21-32) Anion Gap 12 (6-14) Blood Urea Nitrogen 19 mg/dL (7-20) Creatinine 0.9 mg/dL (0.6-1.0) Estimated GFR (Cockcroft-Gault) 65.8 BUN/Creatinine Ratio 21 (6-20) H Glucose Level 87 mg/dL (70-99) Calcium Level 9.6 mg/dL (8.5-10.1) Magnesium Level 1.9 mg/dL (1.8-2.4) Total Bilirubin 0.3 mg/dL (0.2-1.0) Aspartate Amino Transferase (AST) 19 U/L (15-37) Alanine Aminotransferase (ALT) 27 U/L (14-59) Alkaline Phosphatase 104 U/L (46-116) Creatine Kinase 175 U/L (26-192) Creatine Kinase MB (Mass) 1.8 ng/mL (0.0-3.6) Creatine Kinase MB Relative Index 1.0 % (0-4) Troponin I Quantitative < 0.017 ng/mL (0.000-0.055) Total Protein 7.0 g/dL (6.4-8.2) Albumin 4.0 g/dL (3.4-5.0) Albumin/Globulin Ratio 1.3 (1.0-1.7) Lipase 119 U/L (73-393) Thyroid Stimulating Hormone (TSH) 1.059 uIU/mL (0.358-3.74) Lactic Acid Level 0.8 mmol/L (0.4-2.0) Ionized Calcium 1.22 mmol/L (1.13-1.32) Laboratory Tests 02/03/19 23:15 Laboratory Tests 02/03/19 23:15 EKG EKG EKG at 2338: Normal sinus rhythm rate of 70 bpm, no ST elevation or signs of ischemia[] Radiology/Procedures Radiology/Procedures PROCEDURE: CT HEAD WO CONTRAST CT head without contrast PQRS statement: CT scans at this facility use dose reduction including either automated exposure control, iterative reconstructions, and /or weight based radiation dosing via mA and kV modification when appropriate to reduce radiation dose to as low as reasonably achievable. HISTORY: Facial numbness. TECHNIQUE: [address] imaging skull base to vertex. FINDINGS: No intracranial hemorrhage, mass, hydrocephalus or infarction. No acute ischemic change evident. Orbits, mastoids, paranasal sinuses and bones are unremarkable. IMPRESSION: No acute intracranial CT abnormality. Electronically signed by: Ricardo Stewart MD (02/04/2019 12:28 AM) [facility] PROCEDURE: CT ANGIOGRAPHY HEAD AND NECK CT angiography head and neck with contrast PQRS statement: CT scans at this facility use dose reduction including either automated exposure control, iterative reconstructions, and /or weight based radiation dosing via mA and kV modification when appropriate to reduce radiation dose to as low as reasonably achievable. Stenosis calculations for CT, MR, and conventional angiography are based upon measurements of the distal ICA diameter in accordance with the NASCET methodology. Stenosis calculations for carotid ultrasound studies are derived from validated velocity criteria which are known to correlate with the NASCET methodology. HISTORY: Right facial numbness. TECHNIQUE: Helical CT imaging of the head and neck with 3-D MIP reconstructions of the arteries characterize vascular anatomy and pathology with 100 mL Omnipaque 350 intravenous contrast. Neck findings: Vessels from the aortic arch are patent without stenosis. Codominant vertebral arteries. No plaque, vessel irregularity, thrombus, dissection, aneurysm, stenosis or occlusion of the cervical carotid and vertebral arteries. Apical centrilobular pulmonary emphysema. Thyroidectomy. Fixation plate and screws left clavicle. Head findings: Minimal focal calcified plaque left vertebral artery without stenosis. Minimal calcified plaque cavernous carotid arteries without stenosis. No intracranial arterial stenosis, thrombus, occlusion or aneurysm. IMPRESSION: No stenosis, thrombosis, occlusion or aneurysm. Electronically signed by: Ricardo Stewart MD (02/04/2019 2:47 AM) [facility] Course & Med Decision Making Course & Med Decision Making Pertinent Labs and Imaging studies reviewed. (See chart for details) [] Dragon Disclaimer Dragon Disclaimer This electronic medical record was generated, in whole or in part, using a voice recognition dictation system. Departure Departure Impression: Primary Impression: Right facial numbness Disposition: 01 HOME, SELF-CARE Condition: STABLE Referrals: NICO NIXON MD (PCP) AIYANA VELASQUEZ MD Patient Instructions: Paresthesia, [id number] Scripts Prednisone (PREDNISONE) 20 Mg Tablet 2 TAB PO DAILY, #8 TAB Start this medication tomorrow, 02/05/19 Prov: IZABELLA CALLAWAY DO 02/04/19 IZABELLA CALLAWAY DO Feb 03, 2019 23:43
[2019-02-03 23:44] LABS: BASO # 0.1 x10^3/uL (0.0-0.2); BASO % 1 % (0-3); EOS # 0.2 x10^3/uL (0.0-0.7); EOS % 2 % (0-3); HEMATOCRIT 38.9 % (36.0-47.0); HEMOGLOBIN 13.2 g/dL (12.0-15.5); LYMPH # 2.5 x10^3/uL (1.0-4.8); LYMPH % 29 % (24-48); MEAN CORPUSCULAR HEMOGLOBIN 32 pg (25-35); MEAN CORPUSCULAR HGB CONC 34 g/dL (31-37); MEAN CORPUSCULAR VOLUME 94 fL (79-100); MONO # 0.5 x10^3/uL (0.0-1.1); MONO % 6 % (0-9); NEUT # 5.2 x10^3uL (1.8-7.7); NEUT % 62 % (31-73); PLATELET COUNT 291 x10^3/uL (140-400); RED BLOOD COUNT 4.14 x10^6/uL (3.50-5.40); RED CELL DISTRIBUTION WIDTH 13.8 % (11.5-14.5); WHITE BLOOD COUNT 8.5 x10^3/uL (4.0-11.0)
[2019-02-03 23:45] LABS: BILIRUBIN,URINE NEGATIVE (NEG); CLARITY,URINE CLEAR; COLOR,URINE YELLOW; NITRITE,URINE NEGATIVE (NEG); PH,URINE 5.5; PROTEIN,URINE NEGATIVE (NEG-TRACE); UROBILINOGEN,URINE 0.2 mg/dL (0.2 mg/dL)
[2019-02-03 23:52] LABS: BACTERIA,URINE 0 /HPF (0-FEW); RBC,URINE 0 /HPF (0-2); SQUAMOUS EPITHELIAL CELL,UR OCC /LPF; WBC,URINE 0 /HPF (0-4)
[2019-02-03 23:54] LABS: PROTHROMBIN TIME PATIENT 11.9 SEC (11.7-14.0)
[2019-02-03 23:57] LABS: CALCIUM 9.6 mg/dL (8.5-10.1); CREATININE 0.9 mg/dL (0.6-1.0); GFR 65.8; POTASSIUM 3.4 mmol/L (3.5-5.1)
[2019-02-04 00:04] LABS: ALBUMIN/GLOBULIN RATIO 1.3 (1.0-1.7); MAGNESIUM 1.9 mg/dL (1.8-2.4); TOTAL BILIRUBIN 0.3 mg/dL (0.2-1.0)
--- NOTE | 2019-02-04 00:31 | RAD ---
CT head without contrast PQRS statement: CT scans at this facility use dose reduction including either automated exposure control, iterative reconstructions, and /or weight based radiation dosing via mA and kV modification when appropriate to reduce radiation dose to as low as reasonably achievable. HISTORY: Facial numbness. TECHNIQUE: [address] imaging skull base to vertex. FINDINGS: No intracranial hemorrhage, mass, hydrocephalus or infarction. No acute ischemic change evident. Orbits, mastoids, paranasal sinuses and bones are unremarkable. IMPRESSION: No acute intracranial CT abnormality. Electronically signed by: Ricardo Stewart MD (02/04/2019 12:28 AM) [facility]
[2019-02-04] MEDS ORDERED: POTASSIUM CHLORIDE 20 MEQ TABLET.ER. PO ONE (00:45)
[2019-02-04] MEDS ORDERED: CONTRAST GIVEN. MC PRN (01:45)
[2019-02-04] MEDS ORDERED: IOHEXOL 350 MG/ML 100 ML VIAL. IV ONE (01:45)
[2019-02-04] MEDS ORDERED: ASPIRIN 325 MG TABLET PO ONE (01:45)
--- NOTE | 2019-02-04 02:50 | RAD ---
CT angiography head and neck with contrast PQRS statement: CT scans at this facility use dose reduction including either automated exposure control, iterative reconstructions, and /or weight based radiation dosing via mA and kV modification when appropriate to reduce radiation dose to as low as reasonably achievable. Stenosis calculations for CT, MR, and conventional angiography are based upon measurements of the distal ICA diameter in accordance with the NASCET methodology. Stenosis calculations for carotid ultrasound studies are derived from validated velocity criteria which are known to correlate with the NASCET methodology. HISTORY: Right facial numbness. TECHNIQUE: Helical CT imaging of the head and neck with 3-D MIP reconstructions of the arteries characterize vascular anatomy and pathology with 100 mL Omnipaque 350 intravenous contrast. Neck findings: Vessels from the aortic arch are patent without stenosis. Codominant vertebral arteries. No plaque, vessel irregularity, thrombus, dissection, aneurysm, stenosis or occlusion of the cervical carotid and vertebral arteries. Apical centrilobular pulmonary emphysema. Thyroidectomy. Fixation plate and screws left clavicle. Head findings: Minimal focal calcified plaque left vertebral artery without stenosis. Minimal calcified plaque cavernous carotid arteries without stenosis. No intracranial arterial stenosis, thrombus, occlusion or aneurysm. IMPRESSION: No stenosis, thrombosis, occlusion or aneurysm. Electronically signed by: Ricardo Stewart MD (02/04/2019 2:47 AM) [facility]
[2019-02-04 03:09] VITALS: BP 128/69
[2019-02-04] MEDS ORDERED: PRED20TA PO (03:09)
[2019-02-04] MEDS ORDERED: DEXAMETHASONE 4 MG TABLET ONE (03:20)
[2019-02-04] MEDS ORDERED: DEXAMETHASONE 4 MG TABLET PO ONE (03:30)
--- NOTE | 2019-02-04 14:14 | EKG ---
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
== END 2019-02-04 03:20 | disposition home or self-care (01) ==
LOC: ER 21:56
DX: R20.0 Anesthesia of skin (principal); R20.2 Paresthesia of skin; E03.9 Hypothyroidism, unspecified; R00.2 Palpitations; Z88.2 Allergy status to sulfonamides; Z88.8 Allergy status to other drugs, medicaments and biological substances
CPT/HCPCS: 36415; 70450; 70496; 70498; 80053; 81001; 82310; 82553; 83605; 83690; 83735; 84443; 84484; 85025; 85610; 85730; 93005; 99285; J7030; J8540; Q9967

== ENCOUNTER → 2019-04-11 | Outpatient (CLI) | payer OTHER ==
--- NOTE | 2019-04-12 09:00 | RAD ---
DATE: 04/11/2019 8:30 AM EXAM: MAMMO PAUL SCREENING BILATERAL HISTORY: routine screening evaluation. COMPARISON: Prior mammographic imaging dating back to 07/03/2014 Bilateral CC and MLO views of the breasts were performed. Bilateral breast tomosynthesis was performed in CC and MLO projections. This study was interpreted with the benefit of Computerized Aided Detection (CAD). Breast Density: The breast parenchyma shows scattered fibroglandular densities. Breast parenchyma level B. FINDINGS: Benign calcifications are present. The parenchymal pattern appears stable. Small nodular density in the upper outer right breast in the region of the axillary tail is favored to represent low-lying lymph node given the central lucency. Otherwise, no suspicious masses, microcalcifications or architectural distortion is present to suggest malignancy in either breast. The visualized axillae are unremarkable. IMPRESSION: No mammographic evidence of malignancy. BI-RADS CATEGORY: 2 BENIGN FINDING(S) RECOMMENDED FOLLOW-UP: 12M 12 MONTH FOLLOW-UP Annual screening mammography is recommended, unless clinically indicated sooner based on symptoms or change in physical exam. PQRS compliance statement: Patient information was entered into a reminder system with a target due date 10/11/2020 for the next mammogram. Mammography is a sensitive method for finding small breast cancers, but it does not detect them all and is not a substitute for careful clinical examination. A negative mammogram does not negate a clinically suspicious finding and should not result in delay in biopsying a clinically suspicious abnormality. "Our facility is accredited by the [employer] Mammography Program." ELVIND
== END | disposition home or self-care (01) ==
LOC: MAMMO 08:25
PROVIDERS: ATTEND Internal Medicine
DX: Z12.31 Encounter for screening mammogram for malignant neoplasm of breast (principal); R92.1 Mammographic calcification found on diagnostic imaging of breast
CPT/HCPCS: 77063; 77067

== ENCOUNTER 2019-04-27 22:32 | Observation (INO) | payer OTHER ==
[~2019-04-27] VITALS: Ht 172.7 cm; Wt 89.4 kg
[2019-04-27] MEDS ORDERED: ASPIRIN 325 MG TABLET PO ONE (23:00)
[2019-04-27 23:10] LABS: BASO # 0.1 x10^3/uL (0.0-0.2); BASO % 1 % (0-3); EOS # 0.2 x10^3/uL (0.0-0.7); EOS % 3 % (0-3); HEMATOCRIT 40.3 % (36.0-47.0); HEMOGLOBIN 14.4 g/dL (12.0-15.5); LYMPH # 2.2 x10^3/uL (1.0-4.8); LYMPH % 27 % (24-48); MEAN CORPUSCULAR HEMOGLOBIN 33 pg (25-35); MEAN CORPUSCULAR HGB CONC 36 g/dL (31-37); MEAN CORPUSCULAR VOLUME 92 fL (79-100); MONO # 0.4 x10^3/uL (0.0-1.1); MONO % 5 % (0-9); NEUT # 5.4 x10^3/uL (1.8-7.7); NEUT % 65 % (31-73); PLATELET COUNT 305 x10^3/uL (140-400); RED BLOOD COUNT 4.38 x10^6/uL (3.50-5.40); RED CELL DISTRIBUTION WIDTH 12.9 % (11.5-14.5); WHITE BLOOD COUNT 8.3 x10^3/uL (4.0-11.0)
--- NOTE | 2019-04-27 23:16 | RAD ---
PA and lateral chest. HISTORY: Chest pain PA and lateral views were taken of the chest. Lungs are clear. Heart is normal in size. There is no effusion. There has been no change compared to the study from October 2017. There is a plate on the clavicle on the left. IMPRESSION: 1. No acute chest disease. Electronically signed by: Alphonse Higgins MD (04/27/2019 11:13 PM) [facility]
[2019-04-27 23:22] LABS: CALCIUM 9.3 mg/dL (8.5-10.1); CREATININE 0.7 mg/dL (0.6-1.0); GFR 87.9; POTASSIUM 3.7 mmol/L (3.5-5.1)
[2019-04-27 23:27] LABS: ALBUMIN 4.1 g/dL (3.4-5.0); ALBUMIN/GLOBULIN RATIO 1.4 (1.0-1.7); TOTAL BILIRUBIN 0.6 mg/dL (0.2-1.0)
--- NOTE | 2019-04-27 23:53 | PHYS DOC ---
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 Alcohol Use: Occasionally Drug Use: None Adult General Chief Complaint Chief Complaint: CHEST PAIN HPI HPI Patient is a 54 year old female who presents with yesterday at 7:30 AM she began having left jaw pain and took ibuprofen but got worse throughout the day. She states she called and saw her dentist of which she took x-rays and found nothing wrong with any of her teeth. Patient states the dentist gave her amoxicillin and Percocet and then numbed her jaw. Patient states this morning at 7:30 she awoke with upper and lower left jaw pain and she took a Percocet and said she felt fine most the day until tonight the left jaw pain came back and was a lot worse and she began having dizziness and nausea. Patient states she also has left chest pain that will radiate to the back and feels like something is just going to her chest. Patient states she also has left arm heaviness. Patient rates her jaw and her chest discomfort at a 4 out of 10. Patient denies use of air. Patient has a history of high cholesterol, smoking and a family history of DE at a young age. Review of Systems Review of Systems Constitutional: Denies fever or chills [] Eyes: Denies change in visual acuity, redness, or eye pain [] HENT: Denies nasal congestion or sore throat. Left jaw pain[] Respiratory: Denies cough or shortness of breath [] Cardiovascular: Mid chest pain radiating to the back GI: Denies abdominal pain, nausea, vomiting, bloody stools or diarrhea [] : Denies dysuria or hematuria [] Musculoskeletal: Left arm heaviness. Denies back pain or joint pain [] Integument: Denies rash or skin lesions [] Neurologic: Denies headache, focal weakness or sensory changes [] All other systems were reviewed and found to be within normal limits, except as documented in this note. Current Medications Current Medications Current Medications Medications (Trade) Dose Ordered Sig/Raina Start Time Stop Time Status Last Admin Dose Admin Aspirin (Abhi Aspirin) 325 mg 1X ONCE 04/27/19 23:00 04/27/19 23:01 DC 04/27/19 23:21 325 MG Allergies Allergies Allergies Coded Allergies Type Severity Reaction Last Updated Verified Sulfa (Sulfonamide Antibiotics) Allergy Intermediate 12/17/17 No venlafaxine Allergy Intermediate 12/17/17 Yes Physical Exam Physical Exam Constitutional: Well developed, well nourished, no acute distress, non-toxic appearance. [] HENT: Normocephalic, atraumatic, bilateral external ears normal, oropharynx moist, no oral exudates, nose normal. [] Eyes: PERRLA, EOMI, conjunctiva normal, no discharge. [] Neck: Normal range of motion, no tenderness, supple, no stridor. [] Cardiovascular:Heart rate regular rhythm, no murmur [] Lungs & Thorax: Bilateral breath sounds clear to auscultation [] Abdomen: Bowel sounds normal, soft, no tenderness, no masses, no pulsatile masses. [] Skin: Warm, dry, no erythema, no rash. [] Back: No tenderness, no CVA tenderness. [] Extremities: No tenderness, no cyanosis, no clubbing, ROM intact, no edema. [] Neurologic: Alert and oriented X 3, normal motor function, normal sensory function, no focal deficits noted. [] Psychologic: Affect normal, judgement normal, mood normal. Normal physical exam [] Current Patient Data Vital Signs Vital Signs Date Time Temp Pulse Resp B/P (MAP) Pulse Ox O2 Delivery O2 Flow Rate FiO2 04/27/19 22:36 98.1 77 16 168/96 (120) 98 Room Air 98.1 Lab Values Laboratory Tests Test 04/27/19 23:00 White Blood Count 8.3 x10^3/uL (4.0-11.0) Red Blood Count 4.38 x10^6/uL (3.50-5.40) Hemoglobin 14.4 g/dL (12.0-15.5) Hematocrit 40.3 % (36.0-47.0) Mean Corpuscular Volume 92 fL (79-100) Mean Corpuscular Hemoglobin 33 pg (25-35) Mean Corpuscular Hemoglobin Concent 36 g/dL (31-37) Red Cell Distribution Width 12.9 % (11.5-14.5) Platelet Count 305 x10^3/uL (140-400) Neutrophils (%) (Auto) 65 % (31-73) Lymphocytes (%) (Auto) 27 % (24-48) Monocytes (%) (Auto) 5 % (0-9) Eosinophils (%) (Auto) 3 % (0-3) Basophils (%) (Auto) 1 % (0-3) Neutrophils # (Auto) 5.4 x10^3/uL (1.8-7.7) Lymphocytes # (Auto) 2.2 x10^3/uL (1.0-4.8) Monocytes # (Auto) 0.4 x10^3/uL (0.0-1.1) Eosinophils # (Auto) 0.2 x10^3/uL (0.0-0.7) Basophils # (Auto) 0.1 x10^3/uL (0.0-0.2) Sodium Level 122 mmol/L (136-145) L Potassium Level 3.7 mmol/L (3.5-5.1) Chloride Level 89 mmol/L (98-107) L Carbon Dioxide Level 22 mmol/L (21-32) Anion Gap 11 (6-14) Blood Urea Nitrogen 9 mg/dL (7-20) Creatinine 0.7 mg/dL (0.6-1.0) Estimated GFR (Cockcroft-Gault) 87.9 BUN/Creatinine Ratio 13 (6-20) Glucose Level 90 mg/dL (70-99) Calcium Level 9.3 mg/dL (8.5-10.1) Total Bilirubin 0.6 mg/dL (0.2-1.0) Aspartate Amino Transferase (AST) 20 U/L (15-37) Alanine Aminotransferase (ALT) 21 U/L (14-59) Alkaline Phosphatase 102 U/L (46-116) Troponin I Quantitative < 0.017 ng/mL (0.000-0.055) Total Protein 7.0 g/dL (6.4-8.2) Albumin 4.1 g/dL (3.4-5.0) Albumin/Globulin Ratio 1.4 (1.0-1.7) Laboratory Tests 04/27/19 23:00 Laboratory Tests 04/27/19 23:00 EKG EKG Sinus rhythm and no STEMI[] Interpretation Time: [address] Packer Radiology/Procedures Radiology/Procedures [] Impressions: [facility] [address] [place], [place] [id number] IMAGING REPORT Signed PATIENT: RIKI MEADE ACCOUNT: [id number] : 1965 LOCATION: ER AGE: 54 SEX: F EXAM STATUS: REG ER ORD. PHYSICIAN: BETTYE MEDRANO APRN REASON: chest pain PROCEDURE: CHEST PA & LATERAL PA and lateral chest. HISTORY: Chest pain PA and lateral views were taken of the chest. Lungs are clear. Heart is normal in size. There is no effusion. There has been no change compared to the study from October 2017. There is a plate on the clavicle on the left. IMPRESSION: 1. No acute chest disease. Electronically signed by: Alphonse Higgins MD (04/27/2019 11:13 PM) [facility] DICTATED and SIGNED BY: ALPHONSE HIGGINS MD DATE: 04/27/19 9771 Course & Med Decision Making Course & Med Decision Making Patient is a 54 year old female who presents with yesterday at 7:30 AM she began having left jaw pain and took ibuprofen but got worse throughout the day. She states she called and saw her dentist of which she took x-rays and found nothing wrong with any of her teeth. Patient states the dentist gave her amoxicillin and Percocet and then numbed her jaw. Patient states this morning at 7:30 she awoke with upper and lower left jaw pain and she took a Percocet and said she felt fine most the day until tonight the left jaw pain came back and was a lot worse and she began having dizziness and nausea. Patient states she also has left chest pain that will radiate to the back and feels like something is just going to her chest. Patient states she also has left arm heaviness. Patient rates her jaw and her chest discomfort at a 4 out of 10. Patient denies use of air. Patient has a history of high cholesterol, smoking and a family history of DE at a young age. Vital signs are within normal limits. Lungs are clear to auscultation all lobes. EKG shows sinus rhythm and no STEMI. Abdomen is soft and nontender. Palpation to the chest cannot reproduce the pain in her chest. Speaks in full clear sentences. Skin pink warm and dry. Patient states she no longer feels dizzy or nauseated but the dull pain is still present in chest and jaw. 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 No extremity swelling. Denies visual changes or headache, numbness or tingling, nausea, vomiting, diarrhea, recent illness, fever. Heart Scores 2. 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 Blood Work unremarkable.. Chest x-ray shows no acute findings. Troponin negative. Patient is asked that I order a thyroid blood. Patient to be admitted by Dr Trotter for Observation. Patient is stable and sta dillon her pain is not any worse. Dragon Disclaimer Dragon Disclaimer This electronic medical record was generated, in whole or in part, using a voice recognition dictation system. The HEART Score for CP Pts HEART Score for Chest Pain: HEART Score for Chest Pain Response (Comments) Value History Slighlty/Non-Suspicious 0 ECG Normal 0 Age >45 - < 65 1 Risk Factors 1 or 2 Risk Factors 1 Troponin < Normal Limit 0 Total 2 Risk Factors: Risk Factors: DM, Current or recent (<one month) smoker, HTN, HLP, family history of CAD, obesity. Risk Scores: Score 0 - 3: 2.5% MACE over next 6 weeks - Discharge Home Score 4 - 6: 20.3% MACE over next 6 weeks - Admit for Clinical Observation Score 7 - 10: 72.7% MACE over next 6 weeks - Early Invasive Strategies Departure Departure Impression: Primary Impression: Chest pain Disposition: ADMITTED INPATIENT Admitting Physician: JESSI Condition: STABLE Referrals: NICO NIXON MD (PCP) Problem Qualifiers Primary Impression: Chest pain Chest pain type: unspecified Qualified Codes: R07.9 - Chest pain, unspecified BETTYE MEDRANO FOOD CONSULTANT Apr 27, 2019 23:53
[2019-04-28] MEDS ORDERED: ACETAMINOPHEN 325 MG TABLET. PO PRN
[2019-04-28] MEDS ORDERED: ONDANSETRON PF 4 MG/2 ML VIAL. IV PRN
[2019-04-28 01:00] VITALS: BP 129/79
[2019-04-28] MEDS: fentaNYL PF VIAL 100 MCG/2 ML VIAL IV PRN ×2 (01:23→07:25)
[2019-04-28] MEDS ORDERED: LEVO150T5 PO (01:48)
[2019-04-28] MEDS ORDERED: CLON0.5T11 PO (01:48)
[2019-04-28 03:00] VITALS: BP 134/70
--- NOTE | 2019-04-28 06:16 | EKG ---
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
[2019-04-28 07:00] VITALS: BP 123/72
[2019-04-28 08:11] LABS: CHOLESTEROL/HDL RATIO 4.4
--- NOTE | 2019-04-28 09:26 | PDOC2 ---
JUANY MERINO CLASSIFICATIONS OFFICER CC/CM 04/28/19 0926: CARDIAC CONSULT DATE OF CONSULT Date of Consult DATE: 04/28/19 TIME: 09:01 REASON FOR CONSULT Reason for Consult: Chest pain REFERRING PHYSICIAN Referring Physician: Saida SOURCE Source: Chart review, Patient HISTORY OF PRESENT ILLNESS HISTORY OF PRESENT ILLNESS This is a pleasant 54 yo female admitted for complains of chest and jaw pain. Reports of shooting lower midsternal pain that was intermittent. Also has been having left jaw pain since Wednesday and actually went to the dentist and was given an anesthetic but kept on recurring and the pain so she went to ED. No palpiations, diaphoresis, nausea or vomiting. No recent falls, injury. No infection. No hx of cervical stenosis nor trigeminal issues. No exertional CP nor AYALA. No prior hx of CAD or arrhythmias. She has been stressed lately going to [employer] and work. PAST MEDICAL HISTORY Cardiovascular: No pertinent hx Pulmonary: No pertinent hx CENTRAL NERVOUS SYSTEM: Vertigo GI: GERD Heme/Onc: No pertinent hx Hepatobiliary: No pertinent hx Psych: No pertinent hx Musculoskeletal: Osteoarthritis Rheumatologic: No pertinent hx Infectious disease: No pertinent hx ENT: Allergic Rhinitis Renal/: No pertinent hx Endocrine: Hypothyroidism Dermatology: No pertinent hx PAST SURGICAL HISTORY Past Surgical History: Appendectomy, Arthroscopy (left shoulder surgery with bone stimulator still in), Cholecystectomy, Tonsillectomy, Hysterectomy, Other ( thyroidectomy) FAMILY HISTORY Family History: Coronary Artery Disease (father had PA at 46) SOCIAL HISTORY Smoke: <1 pack per day ALCOHOL: none Drugs: None Lives: with Family CURRENT MEDICATIONS CURRENT MEDICATIONS Current Medications Medications (Trade) Dose Ordered Sig/Raina Route PRN Reason Start Time Stop Time Status Last Admin Dose Admin Aspirin (Abhi Aspirin) 325 mg 1X ONCE PO 04/27/19 23:00 04/27/19 23:01 DC 04/27/19 23:21 Fentanyl Citrate (Fentanyl 2ml Vial) 50 mcg PRN Q1HR PRN IV PAIN 04/28/19 00:00 04/28/19 23:59 04/28/19 07:25 ALLERGIES ALLERGIES: Coded Allergies: Sulfa (Sulfonamide Antibiotics) (Unverified Allergy, Intermediate, 12/17/17) venlafaxine (Verified Allergy, Intermediate, 12/17/17) ROS Review of System 14 point ROS evaluated with pertinent positives noted per HPI PHYSICAL EXAM General: Alert, Oriented X3, Cooperative, No acute distress HEENT: Atraumatic, Mucous membr. moist/pink Lungs: Clear to auscultation, Normal air movement Heart: Regular rate (SR), Normal S1, Normal S2, No murmurs Abdomen: Normal bowel sounds, Soft, No tenderness Extremities: No cyanosis, No edema Skin: No breakdown, No significant lesion Neuro: Normal speech, Sensation intact Psych/Mental Status: Mental status NL, Mood NL MUSCULOSKELETAL: Osteoarthritic changes both hands VITALS/I&O VITALS/I&O: Vital Signs Date Time Temp Pulse Resp B/P (MAP) Pulse Ox O2 Delivery O2 Flow Rate FiO2 04/28/19 07:55 18 99 Room Air 04/28/19 07:00 97.8 65 123/72 (89) 97.8 LABS Lab: Laboratory Tests Test 04/27/19 23:00 04/28/19 06:05 White Blood Count 8.3 x10^3/uL (4.0-11.0) Red Blood Count 4.38 x10^6/uL (3.50-5.40) Hemoglobin 14.4 g/dL (12.0-15.5) Hematocrit 40.3 % (36.0-47.0) Mean Corpuscular Volume 92 fL (79-100) Mean Corpuscular Hemoglobin 33 pg (25-35) Mean Corpuscular Hemoglobin Concent 36 g/dL (31-37) Red Cell Distribution Width 12.9 % (11.5-14.5) Platelet Count 305 x10^3/uL (140-400) Neutrophils (%) (Auto) 65 % (31-73) Lymphocytes (%) (Auto) 27 % (24-48) Monocytes (%) (Auto) 5 % (0-9) Eosinophils (%) (Auto) 3 % (0-3) Basophils (%) (Auto) 1 % (0-3) Neutrophils # (Auto) 5.4 x10^3/uL (1.8-7.7) Lymphocytes # (Auto) 2.2 x10^3/uL (1.0-4.8) Monocytes # (Auto) 0.4 x10^3/uL (0.0-1.1) Eosinophils # (Auto) 0.2 x10^3/uL (0.0-0.7) Basophils # (Auto) 0.1 x10^3/uL (0.0-0.2) Sodium Level 122 mmol/L (136-145) L Potassium Level 3.7 mmol/L (3.5-5.1) Chloride Level 89 mmol/L (98-107) L Carbon Dioxide Level 22 mmol/L (21-32) Anion Gap 11 (6-14) Blood Urea Nitrogen 9 mg/dL (7-20) Creatinine 0.7 mg/dL (0.6-1.0) Estimated GFR (Cockcroft-Gault) 87.9 BUN/Creatinine Ratio 13 (6-20) Glucose Level 90 mg/dL (70-99) Calcium Level 9.3 mg/dL (8.5-10.1) Total Bilirubin 0.6 mg/dL (0.2-1.0) Aspartate Amino Transferase (AST) 20 U/L (15-37) Alanine Aminotransferase (ALT) 21 U/L (14-59) Alkaline Phosphatase 102 U/L (46-116) Troponin I Quantitative < 0.017 ng/mL (0.000-0.055) < 0.017 ng/mL (0.000-0.055) Total Protein 7.0 g/dL (6.4-8.2) Albumin 4.1 g/dL (3.4-5.0) Albumin/Globulin Ratio 1.4 (1.0-1.7) Thyroid Stimulating Hormone (TSH) 3.888 uIU/mL (0.358-3.74) H Triglycerides Level 85 mg/dL (0-150) Cholesterol Level 235 mg/dL (0-200) H LDL Cholesterol, Calculated 165 mg/dL (0-100) H VLDL Cholesterol, Calculated 17 mg/dL (0-40) Non-HDL Cholesterol Calculated 182 mg/dL (0-129) H HDL Cholesterol 53 mg/dL (40-60) Cholesterol/HDL Ratio 4.4 Laboratory Tests 04/27/19 23:00 Laboratory Tests 04/27/19 23:00 ASSESSMENT/PLAN ASSESSMENT/PLAN 1. Atypical chest pain: trops nml, EKG SR without acute changes. 2. Obesity 3. Tobaccoism 4. Family hx of premature CAD: father PA at 46yo 5. HLP 6. Hypothyroidism: TSH not on goal, per PCP Recommendations 1. TTE and if unremarkable then plan for MPI given her risk factors. LHC and MPI were discussed but prefers MPI 2. Start on statin. Discussed smoking cessation. ASA. DENI FLORES MD 04/29/19 1637: CARDIAC CONSULT ASSESSMENT/PLAN ASSESSMENT/PLAN Late entry for 04/28/2019 Patient seen and examined. Agree with above nurse practitioner note. I had a long discussion with the patient regarding her symptoms and stress test findings. At this present time she wishes to continue conservative management which I think is reasonable as she does not have any clear cardiac angina. We discussed smoking cessation If she continues to have symptoms despite medical therapy would could then consider a left heart catheter as needed. JUANY MERINO APRN Apr 28, 2019 09:26 DENI FLORES MD Apr 29, 2019 16:37
--- NOTE | 2019-04-28 10:32 | CARD ---
MR#: [id number] Date of Study: 04/28/2019 Ordering Physician: JUANY MERINO, Referring Physician: AMY ABRAMS, Tech: Harper Michael [facility] APPROVED REPORT EXAM: Two-dimensional and M-mode echocardiogram with Doppler and color Doppler. Other Information Quality : Good INDICATION Chest Pain 2D DIMENSIONS RVDd2.4 (2.9-3.5cm)Left Atrium(2D)3.4 (1.6-4.0cm) IVSd0.8 (0.7-1.1cm)Aortic Root(2D)3.2 (2.0-3.7cm) LVDd4.5 (3.9-5.9cm)LVOT Diameter2.0 (1.8-2.4cm) PWd0.8 (0.7-1.1cm)LVDs2.7 (2.5-4.0cm) FS (%) 30.0 %SV67.4 ml LVEF(%)60.0 (>50%) Aortic Valve AoV Peak Kevon.139.3cm/sAoV VTI25.2cm AO Peak GR.7.8mmHgLVOT Peak Kevon.129.1cm/s LVOT VTI 24.54cmAO Mean GR.4mmHg VIOLET (VMAX)2.23eu1WCW (VTI)3.03cm2 Mitral Valve MV E Ogsojoes00.5cm/sMV DECEL FFPA992yz MV A Kttmbabr52.0cm/sMV KCP32sd E/A Ratio1.1MVA (PHT)3.16cm2 TDI E/Lateral E'8.9E/Medial E'10.4 LEFT VENTRICLE The left ventricle is normal size. There is normal left ventricular wall thickness. The left ventricu lar systolic function is normal and the ejection fraction is within normal range. The Ejection Fracti on is 55-60%. There is normal LV segmental wall motion. Transmitral Doppler flow pattern is Grade I-a bnormal relaxation pattern. RIGHT VENTRICLE The right ventricle is normal size. The right ventricular systolic function is normal. ATRIA The left atrium size is normal. The right atrium size is normal. The interatrial septum is intact wit h no evidence for an atrial septal defect or patent foramen ovale as noted on 2-D or Doppler imaging. AORTIC VALVE The aortic valve is normal in structure and function. Doppler and Color Flow revealed no significant aortic regurgitation. There is no significant aortic valvular stenosis. MITRAL VALVE The mitral valve is calcified but opens well. There is no evidence of mitral valve prolapse. There is no mitral valve stenosis. Doppler and Color Flow revealed no mitral valve regurgitation noted. TRICUSPID VALVE The tricuspid valve is normal in structure and function. Doppler and Color Flow revealed physiologica l tricuspid regurgitation. There is no tricuspid valve stenosis. PULMONIC VALVE Doppler and Color Flow revealed no pulmonic valvular regurgitation. There is no pulmonic valvular chelo nosis. GREAT VESSELS The aortic root is normal in size. The ascending aorta is not well seen. The IVC is normal in size an d collapses >50% with inspiration. PERICARDIAL EFFUSION There is no evidence of significant pericardial effusion. Critical Notification Critical Value: No <Conclusion> The left ventricular systolic function is normal and the ejection fraction is within normal range. Th e Ejection Fraction is 55-60%. There is normal LV segmental wall motion. Signed by : Gino Sierra, Electronically Approved : 04/28/2019 10:31:50
[2019-04-28 11:00] VITALS: BP 111/67
[2019-04-28] MEDS ORDERED: IV NORMAL SALINE 1000ML BAG 1,000 ML IV SCH (11:45)
--- NOTE | 2019-04-28 11:55 | NUR ---
SS following for discharge planning. SS reviewed pt chart. Pt is from home with spouse and is currently on room air. No discharge needs noted at this time. SS will continue to follow for discharge planning.
--- NOTE | 2019-04-28 11:56 | SSS ---
ADMIT DATE: 04/28/2019 CHIEF COMPLAINT: Chest pain. 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 She presented to the ER last night with chest pain. It was going into the left jaw and kind of scared her. She rates it at 7/10. She has some associated weakness. I discussed the case with the ER physician. We have admitted the patient for consultation with Cardiology. I just talked to Cardiology. They are going to get a stress test this morning and an echocardiogram. PAST MEDICAL HISTORY: Migraines, hypothyroidism, bilateral ear disorder causing vertigo, appendectomy, cholecystectomy, hysterectomy, oophorectomy, tonsillectomy, left clavicle surgery with plate and 6 screws. ALLERGIES: SULFA AND VENLAFAXINE. FAMILY HISTORY: Coronary artery disease. SOCIAL HISTORY: She does not drink, smoke or take drugs. 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 MEDICATIONS: Reviewed, please refer to the MRAD. REVIEW OF SYSTEMS: GENERAL: No history of weight change, weakness or fevers. SKIN: No bruising, hair changes or rashes. EYES: No blurred, double or loss of vision. NOSE AND THROAT: No history of nosebleeds, hoarseness or sore throat. HEART: No history of palpitations, chest pain or shortness of breath on exertion. LUNGS: Denies cough, hemoptysis, wheezing or shortness of breath. GASTROINTESTINAL: Denies changes in appetite, nausea, vomiting, diarrhea or constipation. GENITOURINARY: No history of frequency, urgency, hesitancy or nocturia. NEUROLOGIC: Denies history of numbness, tingling, tremor or weakness. PSYCHIATRIC: No history of panic, anxiety or depression. ENDOCRINE: No history of heat or cold intolerance, polyuria or polydipsia. EXTREMITIES: Denies muscle weakness, joint pain, pain on walking or stiffness. PHYSICAL EXAMINATION: VITAL SIGNS: Stable. GENERAL: She is alert, cooperative. HEART: Normal S1, S2. LUNGS: Clear. ABDOMEN: Soft. EXTREMITIES: No edema. SKIN: No rashes. PSYCHIATRIC: She is stable. VASCULAR: Good capillary refill. LABORATORY DATA: Troponin is 0, we repeated it and it is still 0. Sodium level was low at 122. ASSESSMENT AND PLAN: Chest pain and hyponatremia. The patient has a cardiac workup in progress. Regarding the hyponatremia, I would like to give her some IV normal saline until the stress test is back and we will recheck that. Hope to discharge this afternoon if the stress test is negative and if her sodium levels are improving. We will resume home medicines. Deep vein thrombosis prophylaxis. AGNES BHARDWAJ DO DR: KAJAL/orquidea JOB#: [id number] / [id number]
[2019-04-28] MEDS ORDERED: REGADENOSON 0.4 MG/5 ML DISP.SYRIN. IV ONE ×2 (12:52→13:00)
[2019-04-28 15:00] VITALS: BP 109/57
[2019-04-28 15:38] LABS: CALCIUM 8.8 mg/dL (8.5-10.1); CREATININE 0.8 mg/dL (0.6-1.0); GFR 75.3; POTASSIUM 3.9 mmol/L (3.5-5.1)
--- NOTE | 2019-04-28 15:52 | RAD ---
MR#: [id number] Date of Study: 04/28/2019 Ordering Physician: JUANY MERINO, Referring Physician: CATY SAGASTUME Tech: MELINDA Pritchard APPROVED REPORT Test Type: Pharmacological Stress Nurse/Tech: Sugar Cleveland R.N. Test Indications: chest and jaw pain Cardiac History: see ehr Medications: see ehr Medical History: see ehr Resting ECG: SR -see printout Resting Heart Rate: 70 bpm Resting Blood Pressure: 130/65mmHg Pretest Chest Pain: No chest pain Nurse/Tech Notes lungs cta, heart tones regular Consent: The procedure was explained to the patient in lay terms. Informed consent was witnessed. Gary eout was entered into [employer] History and Stress Test performed by MELINDA Pritchard Pharm. Details Pharmacologic stress testing was performed using 0.4mg per 5ml of regadenoson given intravenously ove r 7-10 seconds. Stress Symptoms No chest pain or symptoms. Nausea and vomiting POST EXERCISE Reason for Termination: Infusion complete Target HR: No Max HR: 130 bpm Max Blood Pressure: 134/87mmHg Chest Pain: No. Arrhythmia: No. ST Change: Yes. ST depression in I, aVL, Lead 3 and 4, some also noted in Lead 5 and 6, did not fully resolve during recovery INTERPRETATION Stress EKG Conclusion: No evidence of stress induced EKG changes to suggest ischemia. Imaging Protocol IMAGE PROTOCOL: Rest Tc-99m/stress Tc-99m 1 day Rest: Stress: Viability: Radiopharm.Tc99m KaolimofiAi56x Sestamibi Dose10.2mCi 33mCi Duration 13.5min. 13.5min. Img Date 04/28/2019 04/28/2019 Inj-Img Sedn16hzw. 60min. Rest Admin Site:IV - Left AntecubitalAdministrator:MELINDA Pritchard Stress Admin Site: IV - Left AntecubitalAdministrator: MELINDA Pritchard STRESS DATA End Diast. Vol.81.0mlLVEDV index BSA40.0ml End Syst. Vol.20.0mlLVESV index BSA10.0ml Myocardial Ovbw067.0gEject. Ysdntuhw67.0% Stress Scores Regional WT0.00Summed WT2.00 Regional WM0.00Summed WM1.00 The rest and stress images show normal perfusion, normal contraction and thickening. LV Perf. Quant 17 Seg. SSS0.00 17 Seg. SRS0.00 17 Seg. SDS0.00 Stress Defect Extent (% LAD)0.00Rest Defect Extent (% LAD)0.00Rev. Defect Extent (% LAD)0.00 Stress Defect Extent (% LCX) 0.00Rest Defect Extent (% LCX)0.00Rev. Defect Extent (% LCX)0.00 Stress Defect Extent (% RCA)0.00Rest Defect Extent (% RCA)0.00Rev. Defect Extent (% RCA)0.00 Stress Defect Extent (% MAGAN)0.00Rest Defect Extent (% MAGAN)0.00Rev. Defect Extent (% MAGAN)0.00 Other Information Quality:Good Risk Assessment: Low Risk Conclusion 1. No evidence of stress induced EKG changes. 2. Normal perfusion at stress/rest. 3. Mild elevated TID ratio suggestive of balanced ischemia. 4. Normal EF at > 70% 5. Low risk study Signed by : Gino Sierra, Electronically Approved : 04/28/2019 15:52:15
[2019-04-28] MEDS ORDERED: ASPI-630 PO (16:40)
[2019-04-28] MEDS ORDERED: ATOR40TA59 PO (16:41)
[2019-04-28] MEDS ORDERED: METO25TA4 PO (16:41)
[2019-04-28] MEDS ORDERED: ASPIRIN ENTERIC COATED 81 MG TABLET.DR. PO SCH (17:00)
[2019-04-28] MEDS ORDERED: METOPROLOL TART IMMED RELEASE 25 MG TABLET. PO SCH (21:00)
[2019-04-28] MEDS ORDERED: ATORVASTATIN CALCIUM 40 MG TABLET. PO SCH (21:00)
== END 2019-04-28 17:10 | disposition home or self-care (01) ==
LOC: ER 22:32 → 2 SOUTH 23:52
PROVIDERS: ADMIT Internal Medicine; ATTEND Internal Medicine
DX: R07.89 Other chest pain (principal); E87.1 Hypo-osmolality and hyponatremia; G43.909 Migraine, unspecified, not intractable, without status migrainosus; E03.9 Hypothyroidism, unspecified; Z90.710 Acquired absence of both cervix and uterus; Z98.890 Other specified postprocedural states; Z82.49 Family history of ischemic heart disease and other diseases of the circulatory system; Z90.49 Acquired absence of other specified parts of digestive tract; F17.210 Nicotine dependence, cigarettes, uncomplicated; E78.00 Pure hypercholesterolemia, unspecified; R42 Dizziness and giddiness
CPT/HCPCS: 36415; 71046; 78452; 80048; 80053; 80061; 84443; 84484; 85025; 93005; 93017; 93306; 96361; 96374; 96376; 99284; A9500; G0378; J2785; J3010; J7030; G0379

== ENCOUNTER → 2019-07-19 | Outpatient (CLI) | payer OTHER ==
[~2019-07-19] MED LIST changes: +ASPI-630 PO; +ATOR40TA59 PO; +CLON-77 PO; -CLON0.5T11 PO; +LEVO150T5 PO; +METO25TA4 PO
[2019-07-19 15:01] LABS: BASO # 0.1 x10^3/uL (0.0-0.2); BASO % 1 % (0-3); EOS # 0.2 x10^3/uL (0.0-0.7); EOS % 2 % (0-3); HEMATOCRIT 41.8 % (36.0-47.0); HEMOGLOBIN 14.6 g/dL (12.0-15.5); LYMPH # 2.3 x10^3/uL (1.0-4.8); LYMPH % 22 % (24-48); MEAN CORPUSCULAR HEMOGLOBIN 33 pg (25-35); MEAN CORPUSCULAR HGB CONC 35 g/dL (31-37); MEAN CORPUSCULAR VOLUME 95 fL (79-100); MONO # 0.4 x10^3/uL (0.0-1.1); MONO % 4 % (0-9); NEUT # 7.4 x10^3/uL (1.8-7.7); NEUT % 72 % (31-73); PLATELET COUNT 342 x10^3/uL (140-400); RED BLOOD COUNT 4.42 x10^6/uL (3.50-5.40); RED CELL DISTRIBUTION WIDTH 13.5 % (11.5-14.5); WHITE BLOOD COUNT 10.4 x10^3/uL (4.0-11.0)
[2019-07-19 15:14] LABS: FREE T4 1.25 ng/dL (0.76-1.46); THYROID STIM HORMONE (TSH) 1.077 uIU/mL (0.358-3.74)
[2019-07-20 05:15] LABS: T3 TOTAL 104 ng/dL (71-180); THYROPEROXIDASE ANTIBODY 25 IU/mL (0-34)
--- NOTE | 2019-07-20 08:33 | RAD ---
Examination: THYROID ULTRASOUND History: Thyroid nodules felt in the neck bilaterally. Thyroid cancer with thyroidectomy in 2013. Comparison/Correlation: None Findings: Ultrasound of the thyroid region was performed. Thyroidectomy noted. Hypoechoic nodule in the upper right upper neck measures 2.37 x 1.4 cm reported to measure. At the lower right neck, there is a 2.6) 0.47 x 0.4 cm lymph node. The left upper neck region, there is a 1.2 cm 0.5 cm x 0.7 cm hypoechoic lymph node with a small fatty hilum. The inferior aspect of the left side of the neck, there is a 1.9 cm x 0.6 Centimeter x 0.9 cm lymph node. No significant flow is noted within these lymph nodes. Lymph nodes are smoothly marginated. Impression: Bilateral hypoechoic lymph nodes are present of indeterminate significance. Thyroidectomy. No solid mass identified. Consider further evaluation with CT of the neck with contrast for more definitive assessment. Electronically signed by: Brandan Velazquez MD (07/20/2019 8:30 AM) [facility]
[2019-07-20 14:12] LABS: CALCIUM PTH 9.8 mg/dL (8.7-10.2); CREATININE PTH 0.76 mg/dL (0.57-1.00); PHOSPHORUS PTH 4.2 mg/dL (2.5-4.5); PTH INTACT 31 pg/mL (15-65)
== END | disposition home or self-care (01) ==
LOC: US 14:36
PROVIDERS: ATTEND Nurse Practitioner Family
DX: R53.83 Other fatigue (principal); E04.1 Nontoxic single thyroid nodule; Z85.850 Personal history of malignant neoplasm of thyroid
CPT/HCPCS: 36415; 76536; 82607; 82728; 83540; 83550; 83921; 83970; 84439; 84443; 84480; 85025; 86376

== ENCOUNTER → 2019-07-20 | Outpatient (CLI) | payer OTHER ==
[~2019-07-20] MED LIST changes: +CONTRAST GIVEN. MC PRN; +IOHEXOL 300 MG/ML 100ML VIAL. IV ONE
--- NOTE | 2019-07-20 17:22 | RAD ---
CT SOFT TISSUE NECK W/CONTRAST DATE: 07/20/2019 2:30 PM INDICATION: Enlarged lymph node TECHNIQUE: Axial computed tomography of the neck with intravenous contrast according to the standard neck protocol. 70 cc of Omnipaque 300 was administered intravenously. One or more of the following dose reduction techniques were utilized: Automated exposure control (AEC), Adjustment of mA and/or kV according to patient size, Use of iterative reconstruction technique such as ASiR, CT scan done according to ALARA and image gently/image wisely COMPARISON: Thyroid ultrasound 07/19/2019. FINDINGS: Scattered subcentimeter lymph nodes are seen in the neck. None are pathologically enlarged or abnormally enhancing. Thyroidectomy. The parotid and submandibular glands are normal. The muscles of the neck are normal. Vessels of the neck demonstrate normal course, caliber, and enhancement. The visualized aerodigestive tract is normal. The visualized posterior fossa and brain is unremarkable. The visualized orbits and paranasal sinuses are normal. The cervical spine is normal. ORIF of the left clavicle. Centrilobular emphysema. IMPRESSION: Scattered subcentimeter lymph nodes are seen in the neck. None are pathologically enlarged or abnormally enhancing. Thyroidectomy. Electronically signed by: Yovanny Taylor MD (07/20/2019 5:19 PM) [facility]
== END | disposition home or self-care (01) ==
LOC: CT 13:15
PROVIDERS: ATTEND Nurse Practitioner Family
DX: R59.0 Localized enlarged lymph nodes (principal); J43.2 Centrilobular emphysema; E89.0 Postprocedural hypothyroidism; F17.200 Nicotine dependence, unspecified, uncomplicated; Z90.710 Acquired absence of both cervix and uterus; Z90.49 Acquired absence of other specified parts of digestive tract
CPT/HCPCS: 70491; Q9967

== ENCOUNTER → 2019-12-27 | Outpatient (CLI) | payer OTHER ==
[~2019-12-27] MED LIST changes: -CONTRAST GIVEN. MC PRN; -IOHEXOL 300 MG/ML 100ML VIAL. IV ONE
[2019-12-27 10:34] LABS: BASO # 0.1 x10^3/uL (0.0-0.2); BASO % 1 % (0-3); EOS # 0.2 x10^3/uL (0.0-0.7); EOS % 2 % (0-3); HEMATOCRIT 41.7 % (36.0-47.0); HEMOGLOBIN 14.4 g/dL (12.0-15.5); LYMPH # 1.7 x10^3/uL (1.0-4.8); LYMPH % 20 % (24-48); MEAN CORPUSCULAR HEMOGLOBIN 33 pg (25-35); MEAN CORPUSCULAR HGB CONC 35 g/dL (31-37); MEAN CORPUSCULAR VOLUME 95 fL (79-100); MONO # 0.4 x10^3/uL (0.0-1.1); MONO % 5 % (0-9); NEUT # 5.9 x10^3/uL (1.8-7.7); NEUT % 71 % (31-73); PLATELET COUNT 300 x10^3/uL (140-400); RED BLOOD COUNT 4.38 x10^6/uL (3.50-5.40); RED CELL DISTRIBUTION WIDTH 13.6 % (11.5-14.5); WHITE BLOOD COUNT 8.3 x10^3/uL (4.0-11.0)
[2019-12-27 11:25] LABS: ALBUMIN 3.8 g/dL (3.4-5.0); ALBUMIN/GLOBULIN RATIO 1.2 (1.0-1.7); CALCIUM 8.7 mg/dL (8.5-10.1); CREATININE 0.8 mg/dL (0.6-1.0); GFR 75.3; POTASSIUM 4.1 mmol/L (3.5-5.1); TOTAL BILIRUBIN 0.5 mg/dL (0.2-1.0); TOTAL PROTEIN 6.9 g/dL (6.4-8.2)
[2019-12-27 11:34] LABS: CHOLESTEROL/HDL RATIO 4.8
[2019-12-28 01:08] LABS: HEMOGLOBIN A1C 5.4 % (4.8-5.6)
== END | disposition home or self-care (01) ==
LOC: LAB 09:58
PROVIDERS: ATTEND Nurse Practitioner Family
DX: Z11.1 Encounter for screening for respiratory tuberculosis (principal); E78.5 Hyperlipidemia, unspecified; Z85.850 Personal history of malignant neoplasm of thyroid
CPT/HCPCS: 36415; 80053; 80061; 83036; 84443; 85025; 86481

== ENCOUNTER → 2020-03-25 | Outpatient (CLI) | payer OTHER | END | disposition home or self-care (01) | LOC: LAB 10:43 | PROVIDERS: ATTEND Internal Medicine Pulmonary Disease | DX: Z11.59 Encounter for screening for other viral diseases (principal) | CPT/HCPCS: U0003-CS ==

== ENCOUNTER → 2020-08-19 | Outpatient (CLI) | payer OTHER | LOC: LAB 14:22 | PROVIDERS: ATTEND Internal Medicine Pulmonary Disease | DX: R05 Cough (principal); R51.9 Headache, unspecified; R09.81 Nasal congestion; R68.83 Chills (without fever); Z20.828 Contact with and (suspected) exposure to other viral communicable diseases | CPT/HCPCS: U0003 ==

== ENCOUNTER → 2020-12-17 | Outpatient (CLI) | payer OTHER | LOC: LAB 11:14 | PROVIDERS: ATTEND Nurse Practitioner Family | DX: Z11.1 Encounter for screening for respiratory tuberculosis (principal) | CPT/HCPCS: 86481 ==

== ENCOUNTER 2020-12-22 14:35 | Emergency (ER) | payer OTHER ==
[~2020-12-22] VITALS: Ht 172.7 cm; Wt 90.9 kg
[2020-12-22 14:50] VITALS: BP 158/83
--- NOTE | 2020-12-22 15:01 | RAD ---
Left clavicle 2 views. HISTORY: Left clavicle pain after lifting heavy patient 2 views were taken the left clavicle. There is an old healed clavicle fracture. There is a plate and screws in the clavicle which appear unchanged compared to an old study. AC separation is not evident. IMPRESSION: 1. Old healed left clavicle fracture. 2. No acute finding. Electronically signed by: Alphonse Higgins MD (12/22/2020 2:59 PM) [id number]
--- NOTE | 2020-12-22 15:07 | PHYS DOC ---
Past Medical History Past Medical History: Hypothyroid, Migraines, Other Additional Past Medical Histor: BILATERAL EAR DISORDER THAT CAUSES VERTIGO Past Surgical History: Appendectomy, Cholecystectomy, Hysterectomy, Oophorectomy, Tonsillectomy, Other Additional Past Surgical Histo: LT CLAVICAL PLATE & 6 SCREWS-HAS A BATTERY NO MRI'S. Smoking Status: Current Every Day Smoker Alcohol Use: Occasionally Drug Use: None General Adult EDM: Chief Complaint: CLAVICLE INJURY HPI: HPI: Patient is a 55 year old female who presented to ER for evaluation of pain in her left clavicle area. Patient broke her left clavicle in 2007, had an operation done to fix the fracture with a metal plate. 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 Patient went to have x-ray done of her left clavicle make sure that metal plate is still in place. Patient denies any chest pain or any trouble breathing. Review of Systems: Review of Systems: Constitutional: Denies fever or chills. [] Eyes: Denies change in visual acuity. [] HENT: Denies nasal congestion or sore throat. [] Respiratory: Denies cough or shortness of breath. [] Cardiovascular: Denies chest pain or edema. Positive for left clavicle pain GI: Denies abdominal pain, nausea, vomiting, bloody stools or diarrhea. [] : Denies dysuria. [] Musculoskeletal: Denies back pain or joint pain. [] Integument: Denies rash. [] Neurologic: Denies headache, focal weakness or sensory changes. [] Endocrine: Denies polyuria or polydipsia. [] Lymphatic: Denies swollen glands. [] Psychiatric: Denies depression or anxiety. [] Heart Score: C/O Chest Pain: N/A Risk Factors: Risk Factors: DM, Current or recent (<one month) smoker, HTN, HLP, family history of CAD, obesity. Risk Scores: Score 0 - 3: 2.5% MACE over next 6 weeks - Discharge Home Score 4 - 6: 20.3% MACE over next 6 weeks - Admit for Clinical Observation Score 7 - 10: 72.7% MACE over next 6 weeks - Early Invasive Strategies Allergies: Allergies: Allergies Coded Allergies Type Severity Reaction Last Updated Verified Sulfa (Sulfonamide Antibiotics) Allergy Intermediate 12/17/17 No venlafaxine Allergy Intermediate 12/17/17 Yes Physical Exam: PE: Constitutional: Well developed, well nourished, no acute distress, non-toxic appearance. [] HENT: Normocephalic, atraumatic, bilateral external ears normal, nose normal. [] Eyes: PERRLA, EOMI, conjunctiva normal, no discharge. [] Neck: Normal range of motion, no tenderness, supple, no stridor. [] Cardiovascular:Heart rate regular rhythm, no murmur [] Lungs & Thorax: Bilateral breath sounds clear to auscultation . There is no deformity on the left clavicle area, no crepitus. Skin: Warm, dry, no erythema, no rash. [] Back: Upper back with no injury, no tenderness to palpation Extremities: Left upper extremity with full range of motion, no swelling or tenderness to palpation Neurologic: Alert and oriented X 3, normal motor function, normal sensory function, no focal deficits noted. [] Psychologic: Affect normal, judgement normal, mood normal. [] Current Patient Data: Vital Signs: Vital Signs Date Time Temp Pulse Resp B/P (MAP) Pulse Ox O2 Delivery O2 Flow Rate FiO2 12/22/20 14:50 98.1 78 20 158/83 (108) 98 Room Air 98.1 EKG: EKG: [] Radiology/Procedures: Radiology/Procedures: [] Course & Med Decision Making: Course & Med Decision Making Pertinent Labs and Imaging studies reviewed. (See chart for details) Patient is a 54-year-old female who presented to ER due to concern of clavicle problem on the left side. Patient had previous injury to her left clavicle in 2007, had a metal plate inserted there, had a bone stimulator inserted as well. Patient moved a 395 lbs patient last week, worried that she may have injured her left clavicle area. X-ray of her left clavicle did not show any acute injury, metal plate in position unchanged from previous x-ray. Dragon Disclaimer: Dragon Disclaimer: This electronic medical record was generated, in whole or in part, using a voice recognition dictation system. Departure Departure Impression: Primary Impression: Muscle strain Disposition: 01 DC HOME SELF CARE/HOMELESS Condition: STABLE Referrals: NICO NIXON MD (PCP) follow up with your doctor as needed Patient Instructions: Muscle Strain Additional Instructions: Thank you for visiting our Emergency Department. We appreciate you trusting us with your care. If any additional problems come up don't hesitate to return to visit us. Please follow up with your primary care provider so they can plan additional care if needed and know about the problem that you had. If symptoms worsen come back to the Emergency Department. Any concerning symptoms that start such as chest pain, shortness of air, weakness or numbness on one side of the body, running high fevers or any other concerning symptoms return to the ER. CHAVO PERRY DO Dec 22, 2020 15:07
== END 2020-12-22 15:15 | disposition home or self-care (01) ==
LOC: ER 14:35
DX: S46.812A Strain of other muscles, fascia and tendons at shoulder and upper arm level, left arm, initial encounter (principal); G43.909 Migraine, unspecified, not intractable, without status migrainosus; E03.9 Hypothyroidism, unspecified; F17.200 Nicotine dependence, unspecified, uncomplicated; Z90.49 Acquired absence of other specified parts of digestive tract; Z90.710 Acquired absence of both cervix and uterus; Z90.89 Acquired absence of other organs; Z98.890 Other specified postprocedural states; X58.XXXA Exposure to other specified factors, initial encounter; Y93.89 Activity, other specified; Y92.89 Other specified places as the place of occurrence of the external cause; Y99.0 Civilian activity done for income or pay
CPT/HCPCS: 73000; 99283

== ENCOUNTER → 2021-05-20 | Outpatient (CLI) | payer OTHER | LOC: LAB 16:33 | PROVIDERS: ATTEND Internal Medicine Pulmonary Disease | DX: R51.9 Headache, unspecified (principal); R09.89 Other specified symptoms and signs involving the circulatory and respiratory systems; R09.81 Nasal congestion; R53.81 Other malaise; Z20.822 Contact with and (suspected) exposure to COVID-19 | CPT/HCPCS: U0003; U0005 ==